=== PATIENT | male | born 1965 | race Caucasian/White ===

== ENCOUNTER → 2016-07-09 | Outpatient (REF) | payer BC ==
[~2016-07-09] MED LIST: ACYC200CA PO; MELO7.5T6 PO; MUCI600T34 PO; TRIA50CA PO
[2016-07-09 12:03] LABS: BASO # 0.1 K/mm3 (0.0-0.2); BASO % 1.4 % (0.0-1.0); EOS # 0.3 K/mm3 (0.0-0.50); EOS % 4.8 % (0.0-3.0); LARGE UNSTAINED CELL # 0.2 K/mm3 (0.0-0.4); LARGE UNSTAINED CELL % 4.2 % (0.0-4.0); LYMPH # 1.6 K/mm3 (1.5-4.5); LYMPH % 24.2 % (24.0-44.0); MEAN CORPUSCULAR HEMOGLOBIN 30.3 pg (27.0-33.0); MEAN CORPUSCULAR HGB CONC 33.8 g/dl (32.0-36.5); MEAN CORPUSCULAR VOLUME 89.6 fl (80.0-96.0); MONO # 0.4 K/mm3 (0.0-0.8); MONO % 6.7 % (0.0-5.0); NEUTROPHILS # 3.3 K/mm3 (1.8-7.7); NEUTROPHILS % 58.7 % (36.0-66.0); PLATELET COUNT, AUTOMATED 169 k/mm3 (150-450); WHITE BLOOD COUNT 5.7 K/mm3 (4.0-10.0)
[2016-07-09 12:27] LABS: ALBUMIN 3.9 GM/DL (3.2-5.2); ALBUMIN/GLOBULIN RATIO 1.22 (1.00-1.93); ALKALINE PHOSPHATASE 105 U/L (45-117); ALT/SGPT 49 U/L (12-78); ANION GAP 8 MEQ/L (8-16); AST/SGOT 22 U/L (15-37); BILIRUBIN,TOTAL 0.4 MG/DL (0.2-1.0); BLOOD UREA NITROGEN 20 MG/DL (7-18); CALCIUM LEVEL 9.5 MG/DL (8.5-10.1); CARBON DIOXIDE LEVEL 30 MEQ/L (21-32); CHLORIDE LEVEL 103 MEQ/L (98-107); CREATININE FOR GFR 1.07 MG/DL (0.70-1.30); GLOMERULAR FILTRATION RATE > 60.0 (>56); GLUCOSE, FASTING 85 MG/DL (70-105); SODIUM LEVEL 141 MEQ/L (136-145); TOTAL PROTEIN 7.1 GM/DL (6.4-8.2)
== END ==
LOC: M LABDRAW1 11:33
PROVIDERS: ATTEND Orthopaedic Surgery
DX: M16.11 Unilateral primary osteoarthritis, right hip (principal)

== ENCOUNTER → 2016-12-16 | Outpatient (CLI) | payer BC ==
[~2016-12-16] MED LIST changes: +CEPH500C PO; +COUM2.5T17 PO; +DOXA1TAB42 PO; +ELIQ5TAB PO; +FINA5TAB2 PO; +MAXZTA PO; -MELO7.5T6 PO; +MELO7.5T7 PO; +MUCI600T31 PO; -MUCI600T34 PO; +MUCI600T37 PO; +PROS5TAB PO; +TRAM50TA2 PO
[2016-12-16 10:39] LABS: MEAN CORPUSCULAR HEMOGLOBIN 31.7 pg (27.0-33.0); MEAN CORPUSCULAR HGB CONC 34.5 g/dl (32.0-36.5); MEAN CORPUSCULAR VOLUME 91.9 fl (80.0-96.0); RED CELL DISTRIBUTION WIDTH 12.8 % (11.5-14.5)
[2016-12-16 10:49] LABS: INR 0.92
[2016-12-16 11:19] LABS: ALBUMIN 3.9 GM/DL (3.2-5.2); ALBUMIN/GLOBULIN RATIO 1.26 (1.00-1.93); ALKALINE PHOSPHATASE 96 U/L (45-117); ALT/SGPT 38 U/L (12-78); ANION GAP 8 MEQ/L (8-16); AST/SGOT 18 U/L (15-37); BILIRUBIN,TOTAL 0.6 MG/DL (0.2-1.0); BLOOD UREA NITROGEN 17 MG/DL (7-18); CALCIUM LEVEL 9.2 MG/DL (8.5-10.1); CARBON DIOXIDE LEVEL 31 MEQ/L (21-32); CHLORIDE LEVEL 102 MEQ/L (98-107); CREATININE FOR GFR 1.08 MG/DL (0.70-1.30); GLOMERULAR FILTRATION RATE > 60.0 (>56); GLUCOSE, FASTING 101 MG/DL (70-105); POTASSIUM SERUM 4.1 MEQ/L (3.5-5.1); SODIUM LEVEL 141 MEQ/L (136-145)
--- NOTE | 2016-12-16 11:59 | REP ---
Clinical: Preoperative assessment . Comparison: 05/05/2016 . Technique: PA and lateral. Findings: The mediastinum and cardiac silhouette are normal. Airway is patent and midline. The lung verma are clear and without acute consolidation, effusion, or pneumothorax. The skeletal structures are intact and normal. Impression: 1. No acute cardiopulmonary process. Signed by Simón Manuel MD 12/16/2016 11:50 A
--- NOTE | 2016-12-16 12:02 | ECGEPIP ---
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
== END ==
LOC: M ADMPAT 09:12
PROVIDERS: ATTEND Orthopaedic Surgery
DX: Z01.818 Encounter for other preprocedural examination (principal); M16.11 Unilateral primary osteoarthritis, right hip

== ENCOUNTER → 2016-12-16 | Outpatient (CLI) | payer BC | LOC: M LAB 09:58 | PROVIDERS: ATTEND Family Medicine | DX: Z01.818 Encounter for other preprocedural examination (principal); I10 Essential (primary) hypertension ==

== ENCOUNTER 2016-12-28 05:34 | Inpatient (IN) | payer BC ==
[2016-12-16 09:49] VITALS: BP 132/80
--- NOTE | 2016-12-24 13:51 | HPE ---
DATE OF ADMISSION: 12/28/2016 CHIEF COMPLAINT: Right hip pain and stiffness. ATTENDING PHYSICIAN: Ainsley Thomson MD HISTORY OF PRESENT ILLNESS: This is a pleasant 51-year-old male patient with progressively worsening right hip pain and stiffness. He has failed to improve with conservative management to include anti-inflammatories, rest, and activity modifications. It affects his activities of daily living and his work-related activities. He has pain, particularly with weightbearing activities and climbing ladders and stairs. He has had x-rays notable for severe osteoarthritis of the right hip. He has elected for surgery for his continued symptoms. He has consented for a right total hip arthroplasty by Dr. Thomson. Medical optimization, Dr. Mccray. ALLERGIES: PEANUT-CONTAINING DRUG PRODUCTS, GELATIN, PREDNISONE. CURRENT MEDICATIONS: Include: - triamterene/hydrochlorothiazide 75/50 one-quarter tablet once per day - He also takes acyclovir 400 mg one tablet once per day. 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 PAST SURGICAL HISTORY: Hernia repair. Otherwise, unremarkable. SOCIAL HISTORY: He does not smoke. He uses alcohol occasionally. 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 FAMILY HISTORY: Noncontributory. REVIEW OF SYSTEMS: Denies fever or chills. Denies chest pain, shortness of breath, or cough. Denies difficulty breathing. Denies abdominal pain. Denies upper respiratory infection (URI) or urinary tract infection (UTI) symptoms. Notes persistent pain in his right hip with weightbearing activities and activities of daily living and denies nausea or vomiting. PHYSICAL EXAMINATION: Today, reveals alert, well-nourished, well-developed male patient, who walks with a limping gait, favors his right side. Examination of the right hip reveals skin to be intact. No erythema, edema, or ecchymosis. There is irritability on hip range of motion. There is decreased internal-external rotation of the hip. Straight leg raise testing is negative to well-perfused right lower extremity. Dorsalis pedis and posterior tibial pulses are palpable. Neck is supple without adenopathy or jugular venous distention (JVD). Lungs are clear to auscultation without rales or wheeze. Heart: Regular rate and rhythm. Abdomen: Bowel sounds are present. Current vital signs: Height 69 inches, weight 216 pounds, temperature 97.5, blood pressure 152/96, pulse 80, respirations 16. IMPRESSION: Symptomatic osteoarthritis of his right hip. LABORATORY DATA: Glucose 101, BUN 17, creatinine 1.08, sodium 141, potassium 4.1, WBC count is 6, RBC count 5.2, hemoglobin 16.5, hematocrit 47.8. PT 12.4, INR 0.92. Urine culture, no growth. Nasal culture, normal khoa. Urinalysis, 1+ blood, otherwise unremarkable. Sedimentation rate 2. Electrocardiogram (EKG), sinus rhythm. Chest x-ray, no acute cardiopulmonary process noted. PLAN: Consented for a right total hip arthroplasty by Dr. Thomson. FABIANA
[2016-12-28] VITALS (9 sets, daily range): BP systolic 96–171; BP diastolic 59–98
[~2016-12-28] VITALS: Ht 180.3 cm; Wt 97.5 kg
[~2016-12-28 05:34] MED LIST changes: -CEPH500C PO; -COUM2.5T17 PO; -ELIQ5TAB PO; -MAXZTA PO; -MUCI600T31 PO; -PROS5TAB PO; -TRAM50TA2 PO
[2016-12-28] MEDS ORDERED: LR 1,000 ML IV ONE (06:00)
[2016-12-28] MEDS ORDERED: LR 1,000 ML IV SCH ×2 (06:00→10:00)
[2016-12-28] MEDS ORDERED: ACETAMINOPHEN 500 MG TAB PO ONE (06:00)
[2016-12-28] MEDS ORDERED: CLINDAMYCIN INJ 900MG/6ML VIAL As Ordered ONE (06:23)
[2016-12-28] MEDS ORDERED: MUCI600T31 PO (06:55)
[2016-12-28] MEDS ORDERED: ceFAZolin 1GM INJ (J0690) As Ordered ONE (07:29)
[2016-12-28] MEDS ORDERED: fentaNYL 100 MCG/2 ML INJECTION (J3010) As Ordered ONE (08:06)
[2016-12-28] MEDS ORDERED: MIDAZOLAM INJ 2 MG/2 ML VIAL (J2250) As Ordered ONE ×2 (08:06→08:17)
[2016-12-28] MEDS ORDERED: LIDOCAINE 2% INJ 100 MG/5 ML SDV (FOR ANES.) As Ordered ONE (08:06)
[2016-12-28] MEDS ORDERED: PROPOFOL 200 MG/20 ML VIAL As Ordered ONE ×2 (08:06→08:07)
[2016-12-28] MEDS ORDERED: ePHEDrine SULFATE 25 MG/5 ML(5MG/ML) SYRINGE As Ordered ONE ×2 (08:07→08:31)
[2016-12-28] MEDS ORDERED: DOXAZOSIN MESYLATE 1 MG TAB PO SCH (09:00)
[2016-12-28] MEDS ORDERED: MORPHINE 1MG/ML IN 0.9% NACL 100ML IV BAG As Ordered ONE (09:21)
[2016-12-28] MEDS ORDERED: diphenhydrAMINE INJ 50MG/ML VIAL (J1200) IV PRN (10:00)
[2016-12-28] MEDS ORDERED: MORPHINE 1MG/ML IN 0.9% NACL 100ML IV BAG IV PRN (10:00)
[2016-12-28] MEDS ORDERED: fentaNYL 100 MCG/2 ML INJECTION (J3010) IV PRN (10:00)
[2016-12-28] MEDS ORDERED: ONDANSETRON 4MG/2ML VIAL (J2405) IV PRN ×2 (10:00)
[2016-12-28] MEDS ORDERED: NALOXONE INJ 0.4 MG/1 ML VIAL (J2310) IV PRN (10:00)
[2016-12-28] MEDS ORDERED: FLEET ENEMA PR PRN (10:00)
[2016-12-28] MEDS ORDERED: ACETAMINOPHEN TAB 650MG DOSE (2X325MG) PO PRN (10:00)
[2016-12-28] MEDS ORDERED: EPIDURAL/PCA KEYS XX PRN (10:00)
[2016-12-28] MEDS ORDERED: NALBUPHINE HCL 10 MG/ML AMP (J2300) IV PRN (10:00)
[2016-12-28] MEDS: LR 1,000 ML IV SCH ×2 (11:23→22:30)
--- NOTE | 2016-12-28 12:22 | IPNPDOC ---
Subjective Date Seen The patient was seen on 12/28/16. Subjective Chief Complaint/HPI The patient is a 51-year-old male admitted with a reason for visit of Arthritis Right Hip. Events since last encounter consulted by Dr Wright for comanagement of medical commrbidities Pateint had right total hip arthroplasty for advanced osteoarthritis. Surgery was uneventful pateint does no have any complaints at this time. No pain , no nausea or vomiting or diarrhea, no chest pain or SOB , no cough or phlegm Objective Physical Examination General Exam: Positive: Alert, Cooperative, No Acute Distress Eye Exam: Positive: PERRLA, Conjunctiva & lids normal, EOMI, Negative: Sclera icteric ENT Exam: Positive: Atraumatic, Mucous membr. moist/pink, Pharynx Normal Neck Exam: Positive: Supple, Negative: JVD, thyromegaly Chest Exam: Positive: Clear to auscultation, Normal air movement Heart Exam: Positive: Rate Normal, Regular Rhythm, Normal S1, Normal S2, Negative: Murmurs, Rubs Abdomen Exam: Positive: Normal bowel sounds, Soft, Negative: Tenderness, Hepatospenomegaly Extremity Exam: Positive: Normal pulses, Negative: Clubbing, Cyanosis, Edema Assessment /Plan Problems (1) S/P total hip arthroplasty Status: Acute Problem Text: for advanced osteoarthritis. pain control and dvt prophylaxis as per ortho protocol. (2) Hypertension Status: Chronic Problem Text: patient takes half of triamterene/ hctz 37.5/25 will start from tomorrow with hold parameters. (3) HSV (herpes simplex virus) infection Status: Chronic Problem Text: continue acyclovir. Plan/VTE VTE Prophylaxis Ordered?: Yes VS, I&O, 24H, Fishbone Vital Signs/I&O Vital Signs Date Time Temp Pulse Resp B/P (MAP) Pulse Ox O2 Delivery O2 Flow Rate FiO2 12/28/16 10:16 78 16 123/75 (91) 97 Room Air 12/28/16 10:05 96.6 RYLEE MCNAMARA MD Dec 28, 2016 12:22
[2016-12-28] MEDS ORDERED: MAXZTA PO (13:26)
[2016-12-28] MEDS ORDERED: DOXA1TAB42 PO (13:27)
[2016-12-28] MEDS ORDERED: MELO7.5T7 PO (13:28)
[2016-12-28] MEDS ORDERED: PROS5TAB PO (13:28)
--- NOTE | 2016-12-28 13:57 | RO ---
DATE OF PROCEDURE: 12/28/2016 PREPROCEDURE DIAGNOSIS: Right hip degenerative arthritis. POSTPROCEDURE DIAGNOSIS: Right hip degenerative arthritis. PROCEDURE: Right total hip arthroplasty using a size 6 [place] high offset stem with a +8.5 neck with a 36 mm ceramic head with a 56 mm Gription cup with a 36 mm neutral polyethylene liner. Prosthesis made by [employer]. SURGEON: Dr. Ainsley Thomson. EMERGENCY RESPONSE COORDINATOR: Mr. Inocente Ramirez. ANESTHESIA: Spinal. ESTIMATED BLOOD LOSS: 200 mL. COMPLICATIONS: None. SPECIMENS: Femoral head. PROCEDURE: Antibiotics were given intravenously preoperatively and successful spinal anesthetic was induced. Mcdermott catheter was placed and then he was placed in a lateral position with Epifanio hip positioner utilized down the leg well padded especially the peroneal nerve and an axillary roll was utilized. His right hip area was then carefully prepped and draped in the usual sterile fashion then after appropriate time out, a longitudinal incision was made for a direct lateral approach to the hip. Bovie cautery was used to coagulate the crossing vessels down to the tensor fascia. Tensor fascia was then divided in alignment of skin incision. Then split the gluteus medius anterior one-third posterior two-third junction exposing the underlying gluteus minimus and divided that as well as underlying hip capsule. We carefully dissected the tissues from the proximal femur satisfactorily and rotated the hip and eventually dislocated it anteriorly. Sterile reamer was placed in the pyriformis fossa followed by the canal finding reamer, then the lateralizing reamer. Then we reamed up to a size 6 reamer. Femoral neck osteotomy was then performed using the template. Then we began broaching up to a size 6. There was good fit and fill with the 6. Calcar planar was used. I then exposed the acetabulum and performed a labral excision 360 degrees and then began reaming beginning with the 48 mm reamer medializing down the tear drop and then expanding the cup size to 55. A trial 56 fit nice and snug. There were some cysts in the acetabulum which were curetted with a curve curette. Then we irrigated once again. The #56 sized Gription cup was then placed with the holes superior and posterior laterally and it fit nicely. We then irrigated and placed the real liner and made sure it was seated properly. We then trialed with a #6 broach once again, we first trialed with a standard neck 1.5 length with a 36 mm ball. The cup seemed to be good position with excellent stability with flexion and internal rotation with adduction as well as extension and external rotation but there is clearly a significant amount of telescoping indicating we needed I felt both length as well as offset because we medialized the cup quite a bit. Thus I trialed with the high offset 8.5 neck and head combination and he had good fit with good stability in flexion and internal rotation with adduction as well as extension and external rotation. I then removed the broach, copiously pulsatile lavage irrigated out the femoral canal as I did several times throughout the surgery, placed the real #6 high offset [place] stem, dried the Trunnion and placed the 36 x 8.5 ceramic head and then reduced the hip. We copiously irrigated once again then closed the anterior capsule and the gluteus minimus back anatomically with interrupted #1 PDS sutures. We then closed the gluteus medius back anatomically with interrupted #1 PDS sutures, irrigated between layers, closed the tensor fascia with interrupted #1 PDS sutures and a running #1 Stratafix, irrigated the subdermal tissues. They were closed with interrupted #2-0 PDS sutures and skin was closed with jennifer covered by Adaptic dry sterile bulky dressing. He was then turned supine and abduction pillow braced supine and then transferred to the recovery room in stable condition. There were no intraoperative complications. Mr. Inocente Ramirez was critical to the success of the procedure by helping to manipulate the leg into the bag and dislocate and relocate the hip several times as well as apply soft tissue reaction, help to repair the patient for surgery as well as help to close the wound.
[2016-12-28] MEDS: MAXZIDE 75/50 TABLET PO SCH (15:56)
[2016-12-28] MEDS ORDERED: PERCOCET 5MG/325MG TAB PO PRN (16:30)
[2016-12-28] MEDS: PERCOCET 5MG/325MG TAB PO PRN ×2 (16:59→21:54)
[2016-12-28] MEDS ORDERED: WARFARIN SOD 5 MG TAB PO ONE (17:00)
[2016-12-28] MEDS: ACYCLOVIR 200 MG CAPSULE PO SCH (17:00)
[2016-12-29 02:00] VITALS: BP 135/55
[2016-12-29] MEDS: PERCOCET 5MG/325MG TAB PO PRN ×4 (02:05→19:59)
[2016-12-29 06:00] VITALS: BP 140/61
[2016-12-29 06:24] LABS: MEAN CORPUSCULAR HEMOGLOBIN 31.9 pg (27.0-33.0); MEAN CORPUSCULAR HGB CONC 34.7 g/dl (32.0-36.5); MEAN CORPUSCULAR VOLUME 92.1 fl (80.0-96.0); RED CELL DISTRIBUTION WIDTH 13.1 % (11.5-14.5)
[2016-12-29 06:39] LABS: ANION GAP 4 MEQ/L (8-16); BLOOD UREA NITROGEN 15 MG/DL (7-18); CALCIUM LEVEL 8.2 MG/DL (8.5-10.1); CARBON DIOXIDE LEVEL 32 MEQ/L (21-32); CHLORIDE LEVEL 102 MEQ/L (98-107); CREATININE FOR GFR 1.03 MG/DL (0.70-1.30); GLOMERULAR FILTRATION RATE > 60.0 (>56); GLUCOSE, FASTING 121 MG/DL (70-105); POTASSIUM SERUM 4.2 MEQ/L (3.5-5.1); SODIUM LEVEL 138 MEQ/L (136-145)
[2016-12-29 06:42] LABS: INR 1.31
--- NOTE | 2016-12-29 09:36 | REP ---
AP LATERAL RIGHT HIP, TWO VIEWS: HISTORY: Hip replacement. The patient is status post right total hip replacement. Degenerative change is present in the acetabulum. There is no acute fracture or dislocation. Surgical clips and a small amount of air are present in the overlying soft tissue. IMPRESSION: The patient is status post right total hip replacement. There is anatomic alignment. Signed by Del Rao MD 12/29/2016 09:49 A
[2016-12-29] MEDS: ACYCLOVIR 200 MG CAPSULE PO SCH (09:51)
[2016-12-29] MEDS: MOM 30ML SUSPENSION UDC PO SCH (09:52)
[2016-12-29] MEDS: MIRALAX *UNIT DOSE* 17GM PACKET PO SCH (09:52)
[2016-12-29] MEDS: MAXZIDE 75/50 TABLET PO SCH (09:53)
[2016-12-29] MEDS: SENOKOT S TAB PO SCH ×2 (09:53→19:58)
[2016-12-29 14:00] VITALS: BP 126/83
--- NOTE | 2016-12-29 14:00 | IPNPDOC ---
Date Seen The patient was seen on 12/29/16. Progress Note Hospitalist Progress Note Subjective: Patient reports some intermittent nausea but overall says he is doing well Objective: Physical Exam: Vitals: Vital Sign - Last 24 Hours 12/28/16 12/28/16 12/28/16 12/28/16 14:15 15:15 16:59 19:15 Temp 96.1 96.9 99.0 Pulse 66 65 77 Resp 10 16 16 14 B/P (MAP) 118/67 (84) 127/63 (84) 125/75 (92) Pulse Ox 95 99 98 O2 Delivery Room Air Room Air Room Air 12/28/16 12/28/16 12/28/16 12/28/16 20:00 21:54 22:00 22:24 Temp 100.1 Pulse 87 Resp 18 14 B/P (MAP) 145/59 (87) Pulse Ox 96 98 O2 Delivery Room Air Room Air Room Air FiO2 96 12/29/16 12/29/16 12/29/16 12/29/16 02:00 02:05 02:35 06:00 Temp 98.3 97.6 Pulse 79 85 Resp 14 95 18 B/P (MAP) 135/55 (81) 140/61 (87) Pulse Ox 99 95 98 O2 Delivery Room Air Room Air Room Air Room Air 12/29/16 12/29/16 12/29/16 09:00 09:52 10:22 Resp 16 18 O2 Delivery Room Air General: Awake, alert, no acute distress HEENT: Normocephalic, atraumatic, extraocular movements intact, moist mucous membranes CV: Regular rate and rhythm, no murmurs rubs or gallops Lungs: Clear to auscultation bilaterally Abd: Soft, nontender, nondistended Extremities: Pedal pulses intact bilaterally Neuro: Alert and oriented 3, normal speech Psych: And normal mood and affect Labs and Imaging: Laboratory Tests 12/29/16 06:01 Red Blood Count 4.25 L, Mean Corpuscular Volume 92.1, Mean Corpuscular Hemoglobin 31.9, Mean Corpuscular Hemoglobin Concent 34.7, Red Cell Distribution Width 13.1, Calcium Level 8.2 L Assessment and Plan: 51-year-old male with osteoarthritis of the right hip, hypertension, frequent herpes simplex virus outbreaks of the lip who was admitted by Dr. Nagel for total right hip arthroplasty. We have been consulted for management of chronic medical issues. 1. Right hip osteoarthritis: Management as per orthopedics. Status post total right hip arthroplasty. 2. Hypertension: We will resume the patient's home triamterene/HCTZ this morning. Blood pressure is controlled. 3. Frequent herpes simplex virus outbreaks of the lip: Continue suppressive acyclovir 400 mg by mouth daily. DVT prophylaxis: As per his primary, surgical team VS, I&O, 24H, [facility] Vital Signs/I&O Vital Signs Date Time Temp Pulse Resp B/P (MAP) Pulse Ox O2 Delivery O2 Flow Rate FiO2 12/29/16 10:22 18 12/29/16 09:00 Room Air 12/29/16 06:00 97.6 85 140/61 (87) 98 12/28/16 22:24 96 12/28/16 13:15 1.0 I&O- Last 24 Hours up to 6 AM 12/29/16 06:00 Intake Total 2800 ml Output Total 1500 ml Balance 1300 ml Laboratory Data 24H LABS Laboratory Tests 2 12/29/16 06:01: Prothrombin Time 16.6H, Prothromb Time International Ratio 1.31, Anion Gap 4L, Glomerular Filtration Rate > 60.0, Blood Urea Nitrogen 15, Creatinine 1.03, Sodium Level 138, Potassium Level 4.2, Chloride Level 102, Carbon Dioxide Level 32, Calcium Level 8.2L CBC/BMP Laboratory Tests 12/29/16 06:01 Red Blood Count 4.25 L, Mean Corpuscular Volume 92.1, Mean Corpuscular Hemoglobin 31.9, Mean Corpuscular Hemoglobin Concent 34.7, Red Cell Distribution Width 13.1, Calcium Level 8.2 L WHITNEY GILL Dec 29, 2016 13:59
[2016-12-29] MEDS ORDERED: WARFARIN SOD 5 MG TAB PO ONE (17:00)
[2016-12-29] MEDS: ACYCLOVIR 400 MG PO SCH (17:24)
[2016-12-29 22:00] VITALS: BP 182/98
[2016-12-30] MEDS: PERCOCET 5MG/325MG TAB PO PRN ×3 (00:39→13:29)
[2016-12-30 06:18] LABS: INR 1.45; MEAN CORPUSCULAR HEMOGLOBIN 31.8 pg (27.0-33.0); MEAN CORPUSCULAR HGB CONC 34.6 g/dl (32.0-36.5); MEAN CORPUSCULAR VOLUME 91.8 fl (80.0-96.0); RED CELL DISTRIBUTION WIDTH 12.7 % (11.5-14.5); WHITE BLOOD COUNT 8.2 K/mm3 (4.0-10.0)
[2016-12-30 06:40] LABS: ANION GAP 5 MEQ/L (8-16); BLOOD UREA NITROGEN 13 MG/DL (7-18); CALCIUM LEVEL 9.2 MG/DL (8.5-10.1); CARBON DIOXIDE LEVEL 33 MEQ/L (21-32); CHLORIDE LEVEL 100 MEQ/L (98-107); CREATININE FOR GFR 0.95 MG/DL (0.70-1.30); GLOMERULAR FILTRATION RATE > 60.0 (>56); GLUCOSE, FASTING 110 MG/DL (70-105); POTASSIUM SERUM 4.4 MEQ/L (3.5-5.1); SODIUM LEVEL 138 MEQ/L (136-145)
[2016-12-30] MEDS: MOM 30ML SUSPENSION UDC PO SCH (08:21)
[2016-12-30] MEDS: MIRALAX *UNIT DOSE* 17GM PACKET PO SCH (08:21)
[2016-12-30] MEDS: SENOKOT S TAB PO SCH ×2 (08:23→20:37)
[2016-12-30] MEDS: HCTZ PO SCH (08:24)
[2016-12-30] MEDS: TRIAMTERENE PO SCH (08:24)
[2016-12-30] MEDS: ACYCLOVIR 400 MG PO SCH (08:24)
[2016-12-30] MEDS: ONDANSETRON 4 MG ORAL DISINTEGRATING TAB (S0181) PO PRN ×2 (10:32→16:39)
--- NOTE | 2016-12-30 13:59 | IPNPDOC ---
Date Seen The patient was seen on 12/30/16. Progress Note Hospitalist Progress Note Subjective: Patient reports nausea has resolved Objective: Physical Exam: Vitals: Vital Sign - Last 24 Hours 12/29/16 12/29/16 12/29/16 12/29/16 14:00 14:25 19:59 20:00 Temp 98.7 Pulse 87 Resp 16 18 18 B/P (MAP) 126/83 (97) Pulse Ox 99 O2 Delivery Room Air Room Air Room Air 12/29/16 12/30/16 12/30/16 12/30/16 22:00 00:39 01:09 08:15 Temp 98.3 Pulse 83 Resp 16 18 B/P (MAP) 182/98 (126) Pulse Ox 98 98 96 O2 Delivery Room Air Room Air Room Air Room Air 12/30/16 12/30/16 12/30/16 08:23 09:51 13:29 Resp 16 16 16 General: Awake, alert, no acute distress HEENT: Normocephalic, atraumatic, extraocular movements intact, moist mucous membranes CV: Regular rate and rhythm Lungs: Clear to auscultation bilaterally, no wheeze Abd: Soft, nontender, nondistended Extremities: Pedal pulses intact bilaterally Neuro: Alert and oriented 3, normal speech Psych: normal mood and affect Labs and Imaging: Laboratory Tests 12/30/16 05:44 Red Blood Count 4.16 L, Mean Corpuscular Volume 91.8, Mean Corpuscular Hemoglobin 31.8, Mean Corpuscular Hemoglobin Concent 34.6, Red Cell Distribution Width 12.7, Calcium Level 9.2 Assessment and Plan: 51-year-old male with osteoarthritis of the right hip, hypertension, frequent herpes simplex virus outbreaks of the lip who was admitted by Dr. Nagel for total right hip arthroplasty. We have been consulted for management of chronic medical issues. 1. Right hip osteoarthritis: Management as per orthopedics. Status post total right hip arthroplasty. 2. Hypertension: Continue the patient's home triamterene/HCTZ. 3. Frequent herpes simplex virus outbreaks of the lip: Continue suppressive acyclovir 400 mg by mouth daily. DVT prophylaxis: As per his primary, surgical team VS, I&O, 24H, Fishbone Vital Signs/I&O Vital Signs Date Time Temp Pulse Resp B/P (MAP) Pulse Ox O2 Delivery O2 Flow Rate FiO2 12/30/16 13:29 16 12/30/16 08:15 Room Air 12/30/16 01:09 96 12/29/16 22:00 98.3 83 182/98 (126) 12/28/16 22:24 96 12/28/16 13:15 1.0 I&O- Last 24 Hours up to 6 AM 12/30/16 06:00 Intake Total 1980 ml Output Total 1000 ml Balance 980 ml Laboratory Data 24H LABS Laboratory Tests 2 12/30/16 05:44: Prothrombin Time 18.0H, Prothromb Time International Ratio 1.45, Anion Gap 5L, Glomerular Filtration Rate > 60.0, Blood Urea Nitrogen 13, Creatinine 0.95, Sodium Level 138, Potassium Level 4.4, Chloride Level 100, Carbon Dioxide Level 33H, Calcium Level 9.2 CBC/BMP Laboratory Tests 12/30/16 05:44 Red Blood Count 4.16 L, Mean Corpuscular Volume 91.8, Mean Corpuscular Hemoglobin 31.8, Mean Corpuscular Hemoglobin Concent 34.6, Red Cell Distribution Width 12.7, Calcium Level 9.2 WHTINEY GILL Dec 30, 2016 13:59
[2016-12-30 14:00] VITALS: BP 144/85
[2016-12-30] MEDS ORDERED: WARFARIN SOD 7.5 MG TAB PO ONE (17:00)
[2016-12-30 22:00] VITALS: BP 132/89
[2016-12-31 06:00] VITALS: BP 160/84
[2016-12-31 06:06] LABS: MEAN CORPUSCULAR HGB CONC 35.2 g/dl (32.0-36.5); RED CELL DISTRIBUTION WIDTH 12.9 % (11.5-14.5); WHITE BLOOD COUNT 8.8 K/mm3 (4.0-10.0)
[2016-12-31 06:16] LABS: INR 1.91
[2016-12-31 06:52] LABS: ANION GAP 3 MEQ/L (8-16); BLOOD UREA NITROGEN 12 MG/DL (7-18); CALCIUM LEVEL 8.9 MG/DL (8.5-10.1); CARBON DIOXIDE LEVEL 37 MEQ/L (21-32); CHLORIDE LEVEL 97 MEQ/L (98-107); CREATININE FOR GFR 1.03 MG/DL (0.70-1.30); GLOMERULAR FILTRATION RATE > 60.0 (>56); GLUCOSE, FASTING 114 MG/DL (70-105); POTASSIUM SERUM 4.2 MEQ/L (3.5-5.1); SODIUM LEVEL 137 MEQ/L (136-145)
[2016-12-31] MEDS: MOM 30ML SUSPENSION UDC PO SCH (07:46)
[2016-12-31] MEDS: MIRALAX *UNIT DOSE* 17GM PACKET PO SCH (07:47)
[2016-12-31] MEDS: SENOKOT S TAB PO SCH (07:47)
[2016-12-31] MEDS ORDERED: COUM2.5T17 PO (08:07)
[2016-12-31] MEDS ORDERED: TRAM50TA2 PO (08:07)
[2016-12-31] MEDS: ACYCLOVIR 400 MG PO SCH (08:08)
[2016-12-31] MEDS: HCTZ PO SCH (08:09)
[2016-12-31] MEDS: TRIAMTERENE PO SCH (08:09)
--- NOTE | 2016-12-31 10:10 | IPNPDOC ---
Date Seen The patient was seen on 12/31/16. Progress Note Hospitalist Progress Note Subjective: Patient reports loose stools and rumbling stomach but he did receive miralax, milk of mag, and senakot yesterday. He reports that he tolerated breakfast. Objective: Physical Exam: Vitals: Vital Sign - Last 24 Hours 12/30/16 12/30/16 12/30/16 12/30/16 13:29 14:00 14:00 20:34 Temp 99.1 Pulse 93 Resp 16 16 14 18 B/P (MAP) 144/85 (104) Pulse Ox 98 O2 Delivery Room Air 12/30/16 12/30/16 12/31/16 12/31/16 21:04 22:00 06:00 08:00 Temp 96.0 98.2 Pulse 108 84 Resp 18 14 14 B/P (MAP) 132/89 (103) 160/84 (109) Pulse Ox 95 96 O2 Delivery Room Air Room Air Room Air General: Awake, alert, no acute distress HEENT: Normocephalic, atraumatic, extraocular movements intact, moist mucous membranes CV: Regular rate and rhythm Lungs: Clear to auscultation bilaterally Abd: Soft, nontender, nondistended Extremities: Pedal pulses intact bilaterally Neuro: Alert and oriented 3, normal speech Psych: normal mood and affect Labs and Imaging: Laboratory Tests 12/31/16 05:42 Red Blood Count 4.14 L, Mean Corpuscular Volume 91.0, Mean Corpuscular Hemoglobin 32.0, Mean Corpuscular Hemoglobin Concent 35.2, Red Cell Distribution Width 12.9, Calcium Level 8.9 Assessment and Plan: 51-year-old male with osteoarthritis of the right hip, hypertension, frequent herpes simplex virus outbreaks of the lip who was admitted by Dr. Nagel for total right hip arthroplasty. We have been consulted for management of chronic medical issues. 1. Right hip osteoarthritis: Management as per orthopedics. Status post total right hip arthroplasty. 2. Hypertension: Continue the patient's home triamterene/HCTZ. 3. Frequent herpes simplex virus outbreaks of the lip: Continue suppressive acyclovir 400 mg by mouth daily. DVT prophylaxis: As per his primary, surgical team VS, I&O, 24H, Fishbone Vital Signs/I&O Vital Signs Date Time Temp Pulse Resp B/P (MAP) Pulse Ox O2 Delivery O2 Flow Rate FiO2 12/31/16 08:00 Room Air 12/31/16 06:00 98.2 84 14 160/84 (109) 96 12/28/16 22:24 96 12/28/16 13:15 1.0 I&O- Last 24 Hours up to 6 AM 12/31/16 06:00 Intake Total 1500 ml Output Total 1200 ml Balance 300 ml Laboratory Data 24H LABS Laboratory Tests 2 12/31/16 05:42: Prothrombin Time 22.5H, Prothromb Time International Ratio 1.91, Anion Gap 3L, Glomerular Filtration Rate > 60.0, Blood Urea Nitrogen 12, Creatinine 1.03, Sodium Level 137, Potassium Level 4.2, Chloride Level 97L, Carbon Dioxide Level 37H, Calcium Level 8.9 CBC/BMP Laboratory Tests 12/31/16 05:42 Red Blood Count 4.14 L, Mean Corpuscular Volume 91.0, Mean Corpuscular Hemoglobin 32.0, Mean Corpuscular Hemoglobin Concent 35.2, Red Cell Distribution Width 12.9, Calcium Level 8.9 WHITNEY GILL Dec 31, 2016 10:09
--- NOTE | 2017-01-05 21:57 | DSES ---
DATE OF ADMISSION: 12/28/2016 DATE OF DISCHARGE: 12/31/2016 ATTENDING PHYSICIAN: Dr. Osmar Thomson ADMISSION DIAGNOSIS: Osteoarthritis right hip. OTHER DIAGNOSES: Hypertension, chronic herpes simplex virus. DISCHARGE DIAGNOSIS: Osteoarthritis right hip status post right total hip arthroplasty. HISTORY: This is a pleasant 51-year-old male patient with progressively worsening right hip pain and stiffness. He failed to improve with conservative management. He was admitted for elective hip replacement on the right side. OPERATION PERFORMED: Right total hip arthroplasty. HOSPITAL COURSE: The patient was admitted on day of surgery and underwent a right total hip arthroplasty which was uneventful. He did well in the postoperative period. His hospital course was without complications. He was up with physical therapy per their protocol and his pain was controlled. On day of discharge he was doing well, weightbearing as tolerated on his right lower extremity. He will use adjusted dose Coumadin and PABLO stockings for 30 days postoperatively for DVT prophylaxis. He will resume his preoperative medications and diet. He was given instructions to include but not limited to wound monitoring and activity limitations. He will use oral pain medications for pain control. He will followup in our office in 10-14 days for a surgical followup. Please refer to the medical record for further details.
== END 2016-12-31 12:40 | disposition home or self-care (01) | DRG 301 ==
LOC: M OR 05:34 → M MS5PR 10:32
PROVIDERS: ADMIT Orthopaedic Surgery; ATTEND Orthopaedic Surgery
PROC: 0SR904A Replacement of Right Hip Joint with Ceramic on Polyethylene Synthetic Substitute, Uncemented, Open Approach (ICD-10-PCS; principal; 2016-12-28 07:30)
DX: M17.11 Unilateral primary osteoarthritis, right knee (principal); Z91.010 Allergy to peanuts; Z88.8 Allergy status to other drugs, medicaments and biological substances; Z91.018 Allergy to other foods; Z79.899 Other long term (current) drug therapy; I10 Essential (primary) hypertension; B00.9 Herpesviral infection, unspecified

== ENCOUNTER → 2017-01-05 | Outpatient (REF) | payer BC ==
[~2017-01-05] MED LIST changes: +CEPH500C PO; +COUM2.5T17 PO; +ELIQ5TAB PO; +MAXZTA PO; +MUCI600T31 PO; +PROS5TAB PO; +TRAM50TA2 PO
[2017-01-05 13:08] LABS: INR 2.37
== END ==
LOC: M LAB REF 12:29
PROVIDERS: ATTEND Nurse Practitioner Family
DX: Z51.81 Encounter for therapeutic drug level monitoring (principal); Z79.01 Long term (current) use of anticoagulants

== ENCOUNTER → 2017-01-18 | Outpatient (REF) | payer BC ==
[2017-01-18 14:21] LABS: INR 1.77
== END ==
LOC: M LAB REF 13:49
PROVIDERS: ATTEND Nurse Practitioner Family
DX: Z51.81 Encounter for therapeutic drug level monitoring (principal); Z79.01 Long term (current) use of anticoagulants

== ENCOUNTER 2017-03-16 16:28 | Inpatient (IN) | payer BC ==
[~2017-03-16] VITALS: Ht 180.3 cm; Wt 106.2 kg
[2017-03-16] VITALS (10 sets, daily range): BP systolic 79–127; BP diastolic 55–87; PULSE 122–125
[~2017-03-16 16:28] MED LIST changes: -CEPH500C PO; -ELIQ5TAB PO
[2017-03-16] MEDS ORDERED: CEPH500C PO (16:40)
[2017-03-16] MEDS ORDERED: ISOVUE-370 76% 100ML VIAL (Q9967) As Ordered ONE (17:04)
[2017-03-16 17:13] LABS: ABG BASE EXCESS 0.1 (-2.0-2.0); ABG HCO3 22.5 MEQ/L (22.0-26.0); ABG PARTIAL PRESSURE CO2 31.4 mmHg (35.0-45.0); ABG PARTIAL PRESSURE O2 69.9 mmHg (75.0-100.0); ABG STANDARD HCO3 24.5 MEQ/L (22.0-26.0); ABG TOTAL CO2 23.5 MEQ/L (22.0-29.0); ABG pH (ARTERIAL) 7.473 UNITS (7.350-7.450)
[2017-03-16 17:19] LABS: BASO # 0.1 10^3/uL (0.0-0.2); BASO % 0.5 % (0.0-1.0); EOS # 0.1 10^3/uL (0.0-0.50); EOS % 1.3 % (0.0-3.0); IMMATURE GRANULOCYTE % 0.4 % (0-0); LYMPH # 0.8 10^3/uL (1.5-4.5); LYMPH % 7.6 % (24.0-44.0); MEAN CORPUSCULAR HGB CONC 33.5 g/dl (32.0-36.5); MEAN CORPUSCULAR VOLUME 89.6 fl (80.0-96.0); MONO # 0.9 10^3/uL (0.0-0.8); MONO % 8.4 % (0.0-5.0); NEUTROPHILS # 8.5 10^3/uL (1.8-7.7); NEUTROPHILS % 81.8 % (36.0-66.0); PLATELET COUNT, AUTOMATED 172 10^3/uL (150-450); RED CELL DISTRIBUTION WIDTH 12.2 % (11.5-14.5); WHITE BLOOD COUNT 10.4 10^3/uL (4.0-10.0)
[2017-03-16 17:20] LABS: ADD MORPHOLOGY? NO
--- NOTE | 2017-03-16 17:38 | REP ---
Portable chest x-ray: Single view. History: Chest pain. Comparison study: December 16, 2016. Findings: The lungs are symmetrically aerated and free of infiltrate. EKG monitoring electrodes overlie the chest. Heart is not enlarged. Pulmonary vasculature is not increased. Impression: No active disease. Signed by Sergio Lopez MD 03/17/2017 08:17 A
[2017-03-16 17:41] LABS: INR 1.08
[2017-03-16 17:44] LABS: ANION GAP 9 MEQ/L (8-16); BLOOD UREA NITROGEN 12 MG/DL (7-18); CALCIUM LEVEL 9.4 MG/DL (8.5-10.1); CARBON DIOXIDE LEVEL 27 MEQ/L (21-32); CHLORIDE LEVEL 99 MEQ/L (98-107); CREATININE FOR GFR 1.21 MG/DL (0.70-1.30); GLOMERULAR FILTRATION RATE > 60.0 (>56); GLUCOSE, FASTING 139 MG/DL (70-105); POTASSIUM SERUM 3.5 MEQ/L (3.5-5.1); SODIUM LEVEL 135 MEQ/L (136-145)
[2017-03-16] MEDS ORDERED: HEPARIN DRIP 25,000 UNITS in APPROPRIATE DILUENT 1 EA IV SCH ×2 (18:16→18:30)
--- NOTE | 2017-03-16 18:16 | REP ---
CT of the chest with IV contrast, CT pulmonary angiography: There are bilateral pulmonary emboli in the distal right and left common pulmonary arteries extending into the upper and lower lobe branches bilaterally. There is a small pleural-based infiltrate peripherally in the left lung. The lung verma otherwise clear. No pleural effusion. The thoracic aorta is unremarkable. Cardiac size normal. No pericardial effusion. No adenopathy. The visualized upper abdominal contents are unremarkable. Impression: Large bilateral central pulmonary emboli in the distal main right and left pulmonary arteries extending into the lobar arteries bilaterally. Signed by Philipp Le MD 03/16/2017 06:07 P
[2017-03-16] MEDS ORDERED: HEPARIN SOD (PORCINE) 5000 UNITS/ML VIAL IV PRN (18:30)
[2017-03-16] MEDS ORDERED: HEPARIN SOD (PORCINE) 5000 UNITS/ML VIAL IV ONE (18:30)
--- NOTE | 2017-03-16 19:00 | REPUSA ---
Clinical history: Pain, swelling. Findings: The left common femoral, superficial femoral, popliteal, and other deep venous structures c ompress normally and demonstrate normal color Doppler flow. Normal venous waveforms with augmentation are seen. On the right, there is echogenic noncompressible thrombus throughout the right common femoral, superf icial femoral, and popliteal arteries. Impression: 1. Nonocclusive deep vein thrombosis throughout the right femoral popliteal venous system. 2. No evidence of deep vein thrombosis in the left femoral popliteal venous system.
[2017-03-16] MEDS: HEPARIN DRIP 25,000 UNITS in APPROPRIATE DILUENT 1 EA IV SCH (19:06)
--- NOTE | 2017-03-16 19:36 | HPE ---
DATE OF ADMISSION: 03/16/2017 PRIMARY CARE PROVIDER: Aicha Mccray MD CHIEF COMPLAINT: Shortness of breath, left-sided chest pain. HISTORY OF PRESENT ILLNESS: The patient is a 52-year-old man who underwent a right total hip replacement on 12/28/2016. He was admitted here on 12/28/2016. He tolerated the procedure well. He went home with a month of Coumadin and had no postoperative complications. He was preparing to return to work, however, the 7 days he got progressively worsening shortness of breath and dyspnea on exertion. He was seen by his primary care provider who suggested that he may have had some sinusitis or sinus infection going down into pneumonia and he was started on antibiotics. He had no improvement of symptoms and progressively worsening of his symptoms prompting him to present to the emergency room today. While in Triage and filling out paperwork he did get lightheaded and have a near-syncopal episode, but did resolve with sitting down. At the present time he denies shortness of breath, chest pain, lightheadedness and dizziness, nausea or vomiting. He tells me his shortness of breath is better with the oxygen provided in the emergency room. PAST MEDICAL HISTORY: Hypertension. Herpes simplex virus (HSV). ALLERGIES: GELATIN. 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 AZITHROMYCIN. PEANUTS. PAST SURGICAL HISTORY: Right total hip. As outlined above. He also had a hernia repair in the distant past. HOME MEDICATIONS: - acyclovir 400 mg daily - cephalexin 500 mg four times a day - Mucinex 600 mg daily - tramadol 150 to 100 mg every 4 hours as needed pain - triamterine/hydrochlorothiazide 75/50 mg daily - Coumadin 2.5 mg. The patient completed for one month after his surgical procedure. He is no longer taking this medication. SOCIAL HISTORY: He lives alone. He denies any tobacco history. His last drink was greater than 6 months ago. 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 FAMILY HISTORY: His father of a massive coronary myocardial infarction ([place]) in his 30s with thrombi up into the neck at that time. REVIEW OF SYSTEMS: Negative other than HPI. PHYSICAL EXAMINATION: Temperature 98.2, heart rate 122. Respiratory rate 16, blood pressure 122/75, O2 saturation 86% on room air. He is 94% on 2 liters. GENERAL: He is a pleasant middle age, overweight male lying on a stretcher at a 30 degrees angle. He does not appear to be in any acute distress. He is accompanied by his mother and stepfather. HEENT: Cranial nerves II through XII grossly intact. Difficult to assess for any elevation of his central venous pressure secondary to his enlarged neck. CARDIOVASCULAR: S1, S2. He is tachycardic without additional heart sounds appreciated. RESPIRATORY: Fairly good. He has pain in the left anterior chest with deep inspiration. ABDOMEN: Benign, but obese. EXTREMITIES: No clubbing, cyanosis or edema. LABORATORY STUDIES: WBC 10.4, hemoglobin 16.7, platelet count 172. Chemistry panel: Sodium 135, potassium 3.5, chloride 9, bicarbonate 27. BUN 12, creatinine 1.2. ProBNP is slightly elevated at 685. Troponin is equivocal at 0.57. Hypercoagulable workup has been sent and is currently pending. Arterial blood gas reveals a pH of 7.4, pCO2 of 31.4 and a pO2 of 69.9. IMAGING: The patient did have a chest x-ray which revealed no active disease. This was subsequently followed up with a CT angiography of the chest which revealed large bilateral central pulmonary emboli in the distal, main and right and left pulmonary arteries, extending into the lobar arteries bilaterally. ASSESSMENT AND PLAN: This is a 52-year-old man with large bilateral pulmonary embolisms (PEs). 1. Large bilateral pulmonary embolisms. At this time I will check a stat duplex of the lower extremities to assess for further clot burden and the need for potentially an IVC filter. He will be admitted to the medical intensive care unit. I have discussed with Dr. Green and he will be given a bolus of IV heparin followed by continuous heparin infusion to have the patient therapeutic as quickly as possible. For the time being I will keep him on bed rest to avoid any further clot migration. He currently has significant O2 requirement tachycardic and had near-syncopal episode. I would like to see him become less tachycardic, less hypoxic and assess his clot burden of the lower extremity before allowing him to ambulate or get out of bed. Given that his father of a massive coronary with thrombi into the neck, I suspect he has a genetic predisposition intensified by his recent surgery and he was on appropriate anticoagulation following the surgery and once this has been appropriately discontinued, his genetic predisposition has revealed itself. Followup with anticoagulation, hypercoagulable state studies with potential of hematology as an outpatient. However, I suspect the patient may benefit from lifelong anticoagulation given his clot burden and the severity of his presentation. Will check an echocardiogram and monitor his troponin, although it is likely demand ischemia related to his clot burden as well as his BNP. 2. Hypertension. We will hold his home antihypertensives. 3. Herpes Zoster. Usually the patient takes acyclovir 400 mg daily to prevent cold sores in his mouth. Will continue with this. He tells me that his allergy to gelatin is cold sores in the mouth. I feel this is less likely related to gelatin. We will be providing him heparin through the IV. Once he is more stable, could consider transitioning him to potentially Eliquis 4. Right total hip replacement. Continue with tramadol as needed for pain. 5. Deep venous thrombosis (DVT) prophylaxis. As outlined above he will be on heparin drip. 6. GI prophylaxis. The patient will be on Protonix IV while on the medical intensive care unit. DISPOSITION: The patient is admitted to Dr. Lowry's service who will continue following the patient at 7:00 a.m. I did have a lengthy discussion with the patient and his family, his mother and stepfather who are bedside that his disease burden is quite severe and that his prognosis is currently guarded. Should the patient have sudden cardiac arrest we would recommend tissue plasminogen activator (tPA), IV push.
--- NOTE | 2017-03-16 23:28 | IPNPDOC ---
Subjective Date Seen The patient was seen on 03/16/17. Subjective Chief Complaint/HPI The patient is a 52-year-old male admitted with a reason for visit of Bilat Pulmonary Embolism. Assessment /Plan Assessment overnight provider asked to respond to pt at 23:25 for hypotension, CP and diaphoresis. Pt. stat EKG did not demonstrate infarct or ischemia. Pt's oxygen was increased to 4 L and the pt stated chest pain had improved substantially. Upon physical exam, pt was not labored, not diaphoretic and stable with bp 118/ 80 and 97% on 4 L O2. Fifteen minutes later, pt was sleeping comfortably in bed. Plan/VTE VTE Prophylaxis Ordered?: Yes VS, I&O, 24H, Fishbone Vital Signs/I&O Vital Signs Date Time Temp Pulse Resp B/P (MAP) Pulse Ox O2 Delivery O2 Flow Rate FiO2 03/16/17 20:15 122 111/73 (86) 96 03/16/17 17:54 Room Air 03/16/17 16:28 98.2 16 Laboratory Data 24H LABS Laboratory Tests 2 03/16/17 16:58: Blood Gas Bicarbonate Standard 24.5, Arterial Blood pH 7.473H, Arterial Blood Partial Pressure CO2 31.4L, Arterial Blood Partial Pressure O2 69.9L, Arterial Blood Total CO2 23.5, Arterial Blood HCO3 22.5, Arterial Blood Base Excess 0.1, Arterial Blood Oxygen Saturation 95.2 03/16/17 16:59: Immature Granulocyte % (Auto) 0.4H, White Blood Count 10.4H, Red Blood Count 5.56, Hemoglobin 16.7, Hematocrit 49.8, Mean Corpuscular Volume 89.6, Mean Corpuscular Hemoglobin 30.0, Mean Corpuscular Hemoglobin Concent 33.5, Red Cell Distribution Width 12.2, Platelet Count 172, Neutrophils (%) (Auto) 81.8H, Lymphocytes (%) (Auto) 7.6L, Monocytes (%) (Auto) 8.4H, Eosinophils (%) (Auto) 1.3, Basophils (%) (Auto) 0.5, Neutrophils # (Auto) 8.5H, Lymphocytes # (Auto) 0.8L, Monocytes # (Auto) 0.9H, Eosinophils # (Auto) 0.1, Basophils # (Auto) 0.1 , Immature Granulocyte # (Auto) 0.0, Nucleated Red Blood Cells % (auto) 0.0, Prothrombin Time 14.2, Prothromb Time International Ratio 1.08, Activated Partial Thromboplast Time 24.5L, D-Dimer, Quantitative > 4000.0H, Anion Gap 9, Glomerular Filtration Rate > 60.0, Blood Urea Nitrogen 12, Creatinine 1.21, Sodium Level 135L, Potassium Level 3.5, Chloride Level 99, Carbon Dioxide Level 27, Calcium Level 9.4, Total Creatine Kinase 98, Creatine Kinase MB 2.5, Creatine Kinase MB Relative Index 2.55, Troponin I 0.57H, NR-Fgt-B-Type Natriuretic Peptide 685H 03/16/17 17:55: 03/16/17 17:56: 03/16/17 22:57: CBC/BMP Laboratory Tests 03/16/17 16:59 Red Blood Count 5.56, Mean Corpuscular Volume 89.6, Mean Corpuscular Hemoglobin 30.0, Mean Corpuscular Hemoglobin Concent 33.5, Red Cell Distribution Width 12.2 , Neutrophils (%) (Auto) 81.8 H, Lymphocytes (%) (Auto) 7.6 L, Monocytes (%) ( Auto) 8.4 H, Eosinophils (%) (Auto) 1.3, Basophils (%) (Auto) 0.5, Neutrophils # (Auto) 8.5 H, Lymphocytes # (Auto) 0.8 L, Monocytes # (Auto) 0.9 H, Eosinophils # (Auto) 0.1, Basophils # (Auto) 0.1, Calcium Level 9.4, Total Creatine Kinase 98 MEHDI ARAGON DO Mar 16, 2017 23:28
[2017-03-17] VITALS (13 sets, daily range): BP systolic 98–127; BP diastolic 70–85; PULSE 117–118
[2017-03-17] MEDS: traMADol 50 MG TAB PO PRN ×2 (01:02→09:36)
[2017-03-17] MEDS ORDERED: PERCOCET 5MG/325MG TAB PO ONE (02:00)
[2017-03-17 05:12] LABS: MEAN CORPUSCULAR HEMOGLOBIN 29.7 pg (27.0-33.0); MEAN CORPUSCULAR HGB CONC 32.8 g/dl (32.0-36.5); MEAN CORPUSCULAR VOLUME 90.6 fl (80.0-96.0); RED CELL DISTRIBUTION WIDTH 12.4 % (11.5-14.5); WHITE BLOOD COUNT 12.7 10^3/uL (4.0-10.0)
[2017-03-17 05:29] LABS: CALCIUM LEVEL 9.3 MG/DL (8.5-10.1); CREATININE FOR GFR 1.38 MG/DL (0.70-1.30); GLOMERULAR FILTRATION RATE 57.2 (>56); POTASSIUM SERUM 4.3 MEQ/L (3.5-5.1)
--- NOTE | 2017-03-17 06:26 | ECGEPIP ---
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
[2017-03-17] MEDS ORDERED: ACYCLOVIR 200 MG CAPSULE PO SCH (09:00)
[2017-03-17] MEDS: PANTOPRAZOLE 40MG INJ (PROTONIX) (C9113) IV SCH (09:36)
--- NOTE | 2017-03-17 11:16 | IPNPDOC ---
Subjective Date Seen The patient was seen on 03/17/17. Subjective Chief Complaint/HPI The patient is a 52-year-old male admitted with a reason for visit of Bilat Pulmonary Embolism. Events since last encounter Pt notes feeling improved at the time of assessment. States he only has a mild dull ache to his mid chest with deep inspiration, but no longer has pain at rest. He states he is also note feeling as SOB as he was last night. He notes that he had the episode of feeling SOB with significant midsternal CP last night but has felt improved after dose of pain medication and being placed on O2. He denies feeling diaphoretic, nausea, vomiting, abd pain or cough. General: Reports: Night Sweats (resolved), Normal Appetite, Denies: Chills, Fatigue Constitutional: Denies: Chills, Fever, Malaise, Weakness, Fatigue ENT: Denies: Head Aches Skin: Denies: Rash Pulmonary: Reports: Dyspnea, Pleuritic Chest Pain, Denies: Cough Cardiovascular: Reports: Chest Pain, Denies: Palpitations, Orthopnea, Paroxysmal Noc. Dyspnea, Edema Gastrointestinal: Denies: Nausea, Vomiting, Abdominal Pain Genitourinary: Denies: Dysuria Neurological: Denies: Weakness Psych: Reports: Mood Normal Objective Physical Examination General Exam: Positive: Alert, Cooperative, No Acute Distress, Other (NC 4L in place, able to speak in full sentences without SOB) Eye Exam: Positive: Conjunctiva & lids normal, EOMI ENT Exam: Positive: Atraumatic, Mucous membr. moist/pink Neck Exam: Positive: Supple, Negative: JVD Chest Exam: Positive: Clear to auscultation, Normal air movement, Wheezing ( inspiratory, bases), Negative: Rales, Rhonchi Heart Exam: Positive: Tachycardic (104-105), Regular Rhythm, Normal S1, Normal S2 Telemetry: Positive: No significant arrhythmia, Sinus Abdomen Exam: Positive: Normal bowel sounds, Soft, Negative: Tenderness, Hepatospenomegaly Neuro Exam: Positive: Normal Speech Psych Exam: Positive: Mental status NL, Mood NL RAD Interpretation STUDY: US extremities Rad Actions: Report Reviewed (Nonocclusive deep vein thrombosis throughout the right femoral popliteal venous system. no LLE DVT) STUDY: CT angio Rad Actions: Report Reviewed (Large bilateral central pulmonary emboli in the distal main right and left pulmonary arteries extending into the lobar arteries bilaterally.) Assessment /Plan Problems (1) Bilateral pulmonary embolism Status: Acute Problem Text: Patient less tachycardic at the time of assessment with HR in the low 100's. Requiring 4L O2 NC which is new for him, saturating well on 4L, will continue to monitor O2 requirement and and wean off as patient improves. Currently on Heparin drip, will continue. CP also significantly improved with one time dose of Percocet, will monitor recurrence of pain. Troponin initially elevated, likely secondary to right heart strain from large bilateral PE's. Trending down, improved this AM at 0.9 down from 1.28. Pt being monitored on tele with no changes on EKG. Plan for echocardiogram for further evaluation. US LE's showed evidence of non obstructive DVT to right popliteal vein, if he worsens clinically, will consider TPA. Patient will likely need lifetime anticoagulation considering severity of initial presentation and high clot burden, will further evaluate at the time of d/c plan for snf anticoagulation. Hypercoagulable workup ordered to include anticardiolipin antibodies as well as Factor II mutation, which can be followed up as OP. (2) PJ (acute kidney injury) Status: Acute Problem Text: Pt with slight increase in Creatinine to 1.38, likely contrast induced. Will monitor BMP tomorrow. (3) Elevated troponin Status: Acute Response to Treatment: Improving Problem Text: Improving, likely demand ischemia and right heart strain from large b/l PE's. normal EKG. Plan for Echo. (4) Tachycardia Status: Acute Problem Text: improving, secondary to b/l large PE's. Will continue to monitor on tele. (5) Hypertension Status: Chronic Problem Text: Will hold patient's home antihypertensives as his BP has been slightly low. (6) HSV (herpes simplex virus) infection Status: Chronic Response to Treatment: Stable Problem Text: Will continue patient's Acyclovir 400mg. (7) DVT prophylaxis Status: Acute Problem Text: Pt currently on Heparin drip. Plan/VTE VTE Prophylaxis Ordered?: Yes (on heparin drip) VS, I&O, 24H, Fishbone Vital Signs/I&O Vital Signs Date Time Temp Pulse Resp B/P (MAP) Pulse Ox O2 Delivery O2 Flow Rate FiO2 03/17/17 05:00 106 18 112/71 (85) 97 Nasal Cannula 4.0 10/4/17 04:00 97.8 Laboratory Data 24H LABS Laboratory Tests 2 03/16/17 16:58: Blood Gas Bicarbonate Standard 24.5, Arterial Blood pH 7.473H, Arterial Blood Partial Pressure CO2 31.4L, Arterial Blood Partial Pressure O2 69.9L, Arterial Blood Total CO2 23.5, Arterial Blood HCO3 22.5, Arterial Blood Base Excess 0.1, Arterial Blood Oxygen Saturation 95.2 03/16/17 16:59: Immature Granulocyte % (Auto) 0.4H, White Blood Count 10.4H, Red Blood Count 5.56, Hemoglobin 16.7, Hematocrit 49.8, Mean Corpuscular Volume 89.6, Mean Corpuscular Hemoglobin 30.0, Mean Corpuscular Hemoglobin Concent 33.5, Red Cell Distribution Width 12.2, Platelet Count 172, Neutrophils (%) (Auto) 81.8H, Lymphocytes (%) (Auto) 7.6L, Monocytes (%) (Auto) 8.4H, Eosinophils (%) (Auto) 1.3, Basophils (%) (Auto) 0.5, Neutrophils # (Auto) 8.5H, Lymphocytes # (Auto) 0.8L, Monocytes # (Auto) 0.9H, Eosinophils # (Auto) 0.1, Basophils # (Auto) 0.1 , Immature Granulocyte # (Auto) 0.0, Nucleated Red Blood Cells % (auto) 0.0, Prothrombin Time 14.2, Prothromb Time International Ratio 1.08, Activated Partial Thromboplast Time 24.5L, D-Dimer, Quantitative > 4000.0H, Anion Gap 9, Glomerular Filtration Rate > 60.0, Blood Urea Nitrogen 12, Creatinine 1.21, Sodium Level 135L, Potassium Level 3.5, Chloride Level 99, Carbon Dioxide Level 27, Calcium Level 9.4, Total Creatine Kinase 98, Creatine Kinase MB 2.5, Creatine Kinase MB Relative Index 2.55, Troponin I 0.57H, LD-Vuv-P-Type Natriuretic Peptide 685H 03/16/17 17:55: 03/16/17 17:56: 03/16/17 22:57: Troponin I 1.28#H 03/17/17 01:47: Activated Partial Thromboplast Time 86.2H 03/17/17 04:49: Troponin I 0.93#H, Anion Gap 5L, Glomerular Filtration Rate 57.2, Blood Urea Nitrogen 14, Creatinine 1.38H, Sodium Level 136, Potassium Level 4.3#, Chloride Level 100, Carbon Dioxide Level 31, Calcium Level 9.3, PB-Ofa-E-Type Natriuretic Peptide 5182H 03/17/17 08:14: CBC/BMP Laboratory Tests 03/16/17 16:59 Red Blood Count 5.56, Mean Corpuscular Volume 89.6, Mean Corpuscular Hemoglobin 30.0, Mean Corpuscular Hemoglobin Concent 33.5, Red Cell Distribution Width 12.2 , Neutrophils (%) (Auto) 81.8 H, Lymphocytes (%) (Auto) 7.6 L, Monocytes (%) ( Auto) 8.4 H, Eosinophils (%) (Auto) 1.3, Basophils (%) (Auto) 0.5, Neutrophils # (Auto) 8.5 H, Lymphocytes # (Auto) 0.8 L, Monocytes # (Auto) 0.9 H, Eosinophils # (Auto) 0.1, Basophils # (Auto) 0.1, Calcium Level 9.4, Total Creatine Kinase 98 03/17/17 04:49 Red Blood Count 5.55, Mean Corpuscular Volume 90.6, Mean Corpuscular Hemoglobin 29.7, Mean Corpuscular Hemoglobin Concent 32.8, Red Cell Distribution Width 12.4 , Calcium Level 9.3 KENDRICK SPENCER DO Mar 17, 2017 08:56
[2017-03-17] MEDS: HEPARIN DRIP 25,000 UNITS in APPROPRIATE DILUENT 1 EA IV SCH (11:28)
[2017-03-17] MEDS ORDERED: WARFARIN SOD 5 MG TAB PO SCH (17:00)
--- NOTE | 2017-03-17 20:56 | ECGEPIP ---
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
[2017-03-18] VITALS: BP 116/73
[2017-03-18 04:00] VITALS: BP 106/74
[2017-03-18] MEDS: HEPARIN DRIP 25,000 UNITS in APPROPRIATE DILUENT 1 EA IV SCH ×2 (04:37→22:29)
[2017-03-18 05:00] LABS: MEAN CORPUSCULAR HEMOGLOBIN 30.1 pg (27.0-33.0); MEAN CORPUSCULAR HGB CONC 32.8 g/dl (32.0-36.5); MEAN CORPUSCULAR VOLUME 91.7 fl (80.0-96.0); RED CELL DISTRIBUTION WIDTH 12.3 % (11.5-14.5)
[2017-03-18 05:18] LABS: ANION GAP 3 MEQ/L (8-16); BLOOD UREA NITROGEN 16 MG/DL (7-18); CALCIUM LEVEL 8.7 MG/DL (8.5-10.1); CARBON DIOXIDE LEVEL 36 MEQ/L (21-32); CHLORIDE LEVEL 98 MEQ/L (98-107); CREATININE FOR GFR 1.25 MG/DL (0.70-1.30); GLOMERULAR FILTRATION RATE > 60.0 (>56); GLUCOSE, FASTING 101 MG/DL (70-105); POTASSIUM SERUM 4.5 MEQ/L (3.5-5.1); SODIUM LEVEL 137 MEQ/L (136-145)
[2017-03-18] MEDS: traMADol 50 MG TAB PO PRN (07:56)
[2017-03-18 08:00] VITALS: BP 126/79; PULSE 96
[2017-03-18] MEDS: PANTOPRAZOLE 40MG INJ (PROTONIX) (C9113) IV SCH (08:21)
[2017-03-18] MEDS ORDERED: ELIQ5TAB PO ×2 (09:24→12:21)
--- NOTE | 2017-03-18 10:51 | IPNPDOC ---
Subjective Date Seen The patient was seen on 03/18/17. Subjective Chief Complaint/HPI The patient is a 52-year-old male admitted with a reason for visit of Bilat Pulmonary Embolism. Events since last encounter Patient reports feeling well at the time of assessment. States his pain and SOB have improved significantly since admission. Notes that at 2AM last night he had acute onset of left sided CP worse with deep inspiration. Notes that the pain was localized to his left chest, felt like a dull ache and was non radiating. He notes the pain improved with a dose of Toradol. States he currently only has mild discomfort to his left chest with breathing, but significantly improved from last night. He denies palpitations, fever, cough, or any other associated sxs. General: Reports: Normal Appetite, Denies: Chills, Fatigue Constitutional: Denies: Chills, Fever, Malaise, Night Sweats, Fatigue ENT: Denies: Head Aches Skin: Denies: Rash Pulmonary: Reports: Dyspnea, Pleuritic Chest Pain (left sided) Cardiovascular: Reports: Chest Pain, Denies: Palpitations, Orthopnea Gastrointestinal: Denies: Nausea, Vomiting, Abdominal Pain, Diarrhea, Constipation Genitourinary: Denies: Dysuria Psych: Reports: Mood Normal Objective Physical Examination General Exam: Positive: Alert, Cooperative, No Acute Distress, Other (NC 4L in place, able to speak in full sentences without SOB) Eye Exam: Positive: Conjunctiva & lids normal, EOMI ENT Exam: Positive: Atraumatic, Mucous membr. moist/pink Neck Exam: Positive: Supple, Negative: JVD Chest Exam: Positive: Clear to auscultation, Normal air movement, Other (chest wall tenderness diffusely, worse to the left. ), Negative: Rales, Rhonchi, Wheezing Heart Exam: Positive: Rate Normal, Regular Rhythm, Normal S1, Normal S2 Telemetry: Positive: No significant arrhythmia, Sinus Abdomen Exam: Positive: Normal bowel sounds, Soft, Negative: Tenderness, Hepatospenomegaly Neuro Exam: Positive: Normal Speech Psych Exam: Positive: Mental status NL, Mood NL Assessment /Plan Problems (1) Bilateral pulmonary embolism Status: Acute Problem Text: Patient's tachycardia now resolved, HR in the mid 90s at the time of assessment. Still on 4L NC, saturating well on 4L, will continue to monitor O2 requirement and and wean off as patient improves. Currently on Heparin drip, will continue. CP also improving with only one episode of increased pain last night which improved with Toradol. Troponin initially elevated, likely secondary to right heart strain from large bilateral PE's, trending down appropriately. Pt being monitored on tele with no events. Echocardiogram still pending. Plan to monitor patient in the ICU for one more day and consider transfer out to PCU tomorrow if remains stable. Patient may need lifetime anticoagulation considering severity of initial presentation and high clot burden, will further evaluate at the time of d/c plan for intermediate card tender anticoagulation. Hypercoagulable workup ordered, which can be followed up as OP. (2) Deep vein thrombosis (DVT) of popliteal vein of right lower extremity Status: Acute (3) PJ (acute kidney injury) Status: Acute Response to Treatment: Improving Problem Text: Pt with slight increase in Creatinine initially to 1.38, likely contrast induced. Creatinine trending down (4) Elevated troponin Status: Acute Response to Treatment: Improving Problem Text: trending down, likely demand ischemia and right heart strain from large b/l PE's. normal EKG.Echo pending (5) Tachycardia Status: Resolved Problem Text: resolved. initially secondary to b/l large PE's. Will continue to monitor on tele in the ICU for one more day and transfer out tomorrow if he continues to improve clinically. Will allow him to use the commode today. (6) Hypertension Status: Chronic Problem Text: Will hold patient's home antihypertensives as his BP has been slightly low. (7) HSV (herpes simplex virus) infection Status: Chronic Response to Treatment: Stable Problem Text: Will continue patient's Acyclovir 400mg. Plan/VTE VTE Prophylaxis Ordered?: Yes (on heparin drip) VS[facility]/I&O Vital Signs Date Time Temp Pulse Resp B/P (MAP) Pulse Ox O2 Delivery O2 Flow Rate FiO2 03/18/17 07:56 18 03/18/17 04:00 Nasal Cannula 4.0 03/18/17 04:00 98.4 96 106/74 (85) 96 Laboratory Data 24H LABS Laboratory Tests 2 03/17/17 10:58: Troponin I 0.54#H 03/18/17 04:51: Activated Partial Thromboplast Time 85.4H, Anion Gap 3L, Glomerular Filtration Rate > 60.0, Blood Urea Nitrogen 16, Creatinine 1.25, Sodium Level 137, Potassium Level 4.5, Chloride Level 98, Carbon Dioxide Level 36H, Calcium Level 8.7 CBC/BMP Laboratory Tests 03/18/17 04:51 Red Blood Count 5.19, Mean Corpuscular Volume 91.7, Mean Corpuscular Hemoglobin 30.1, Mean Corpuscular Hemoglobin Concent 32.8, Red Cell Distribution Width 12.3 , Calcium Level 8.7 KENDRICK SPENCER DO Mar 18, 2017 09:20
[2017-03-18] MEDS: ACYCLOVIR 400 MG PO SCH (11:26)
[2017-03-18 12:00] VITALS: BP 127/79
[2017-03-18] MEDS: ACETAMINOPHEN TAB 650MG DOSE (2X325MG) PO PRN (14:51)
[2017-03-18 16:00] VITALS: BP 115/66
--- NOTE | 2017-03-18 19:04 | ECHO ---
DATE OF PROCEDURE: 03/18/2017 REFERRING PHYSICIAN: Cuong Tomlinson MD INDICATION: Dyspnea. HEIGHT: 180 cm WEIGHT: 104 kg DIMENSIONS: IVS: 1.3 LV: 4.3 LVPW: 1.3 LA: 4.0 Aorta: 3.2 FINDINGS: The study is of fair technical quality corresponding to patient's body habitus. Left ventricle is of normal size and systolic function, I estimate ejection fraction (EF) around 65-70%. Mild left ventricular hypertrophy is present. Right ventricle was poorly visualized, but appears grossly normal. Same applies to both atria. Aortic valve appears mildly sclerotic, but has normal mobility. Mitral and tricuspid valves were poorly seen, but grossly appear normal. Pulmonic valve was not visualized at all. No pericardial effusion is noted. Inferior vena cava appears at least mildly dilated, but it has collapse with respiration indicative of likely mildly elevated central venous pressure. Aortic root is normal. Aortic arch and abdominal aorta were not seen. Doppler interrogation reveals no aortic stenosis or insufficiency. There is also competent mitral valve. Mild tricuspid insufficiency seen. Calculated pulmonary artery pressure is in 30s corresponding to at least mild pulmonary hypertension. Mitral inflow pattern and tissue Doppler imaging of mitral annulus reveal normal diastolic function (E prime septal and lateral velocities are 9.3 and 9.8 cm/s respectively). CONCLUSION: 1. Study is of fair technical quality. 2. Normal left ventricle (LV) size with mild left ventricular hypertrophy (LVH), normal LV systolic function and likely normal diastolic function. 3. No significant valvular disease. 4. Likely at least mildly elevated central venous pressure and mild pulmonary hypertension. COMMENT: Subacute bacterial endocarditis (SBE) prophylaxis is not recommended.
[2017-03-18 20:00] VITALS: BP 116/82
[2017-03-19] VITALS: BP 110/65
[2017-03-19 04:00] VITALS: BP 119/74; PULSE 105
[2017-03-19 05:20] LABS: MEAN CORPUSCULAR HEMOGLOBIN 29.8 pg (27.0-33.0); MEAN CORPUSCULAR HGB CONC 32.5 g/dl (32.0-36.5); MEAN CORPUSCULAR VOLUME 91.6 fl (80.0-96.0); RED CELL DISTRIBUTION WIDTH 12.1 % (11.5-14.5); WHITE BLOOD COUNT 6.5 10^3/uL (4.0-10.0)
[2017-03-19 05:39] LABS: ANION GAP 4 MEQ/L (8-16); BLOOD UREA NITROGEN 15 MG/DL (7-18); CALCIUM LEVEL 8.6 MG/DL (8.5-10.1); CARBON DIOXIDE LEVEL 35 MEQ/L (21-32); CHLORIDE LEVEL 98 MEQ/L (98-107); GLOMERULAR FILTRATION RATE > 60.0 (>56); GLUCOSE, FASTING 101 MG/DL (70-105); POTASSIUM SERUM 4.3 MEQ/L (3.5-5.1); SODIUM LEVEL 137 MEQ/L (136-145)
[2017-03-19] MEDS: ACETAMINOPHEN TAB 650MG DOSE (2X325MG) PO PRN (05:52)
[2017-03-19 08:00] VITALS: BP 131/82
[2017-03-19] MEDS: ACYCLOVIR 400 MG PO SCH (09:01)
[2017-03-19] MEDS: PANTOPRAZOLE 40MG TAB (PROTONIX) PO SCH (09:02)
--- NOTE | 2017-03-19 11:27 | IPNPDOC ---
Subjective Date Seen The patient was seen on 03/19/17. Subjective Chief Complaint/HPI The patient is a 52-year-old male admitted with a reason for visit of Bilat Pulmonary Embolism. Events since last encounter He is laying in the bed once again today. He states that he only had one small episode of chest pain last night, but was resolved with Tylenol and does not seem to be concerning to him. He does have some pain upon inspiration, although this appears to be better as well. Otherwise, he is grateful to be able to use the commode yesterday, and is hoping that he will be able to move about the room today. He denies any shortness of breath, palpitations, leg swelling, or any other pain. Otherwise, the remainder of his review of systems is negative. Objective Physical Examination General Exam: Positive: Alert, No Acute Distress, Other (NC 4L in place, able to speak in full sentences without SOB) Eye Exam: Positive: Conjunctiva & lids normal, EOMI ENT Exam: Positive: Atraumatic, Mucous membr. moist/pink Neck Exam: Positive: Supple, Negative: JVD Chest Exam: Positive: Clear to auscultation, Normal air movement, Negative: Rales, Wheezing Heart Exam: Positive: Rate Normal, Regular Rhythm, Normal S1, Normal S2 Telemetry: Positive: No significant arrhythmia, Sinus Abdomen Exam: Positive: Normal bowel sounds, Soft, Negative: Tenderness, Hepatospenomegaly Neuro Exam: Positive: Normal Speech, Normal Tone Psych Exam: Positive: Mental status NL, Mood NL, Memory Intact, Oriented x 3, Negative: Anxiety Assessment /Plan Problems (1) Bilateral pulmonary embolism Status: Acute Problem Text: Glenn does continue to be in the mid 90s, however he has not been tachycardic through the night. Oxygen requirements are decreasing, although he still does require 1 liter nasal cannula. He did have some desaturations through the night, and is most likely that he has obstructive sleep apnea, therefore we will order a nocturnal oxygen study for tonight and subsequently determine if he needs a sleep study. LINDA has obtained a prior authorization for Eliquis, he will be switched over to Eliquis 10 milligrams by mouth twice a day starting today which she will need to continue for 7 days, then he can switch over to Eliquis 5 milligrams by mouth twice a day thereafter. Hypercoagulability workup is still pending. (2) Deep vein thrombosis (DVT) of popliteal vein of right lower extremity Status: Acute (3) PJ (acute kidney injury) Status: Resolved Response to Treatment: Improving Problem Text: Resolved (4) Elevated troponin Status: Resolved Problem Text: normal EKG. Echocardiogram was performed and shows mildly elevated central venous pressure and mild pulmonary hypertension, otherwise it is unremarkable. (5) Tachycardia Status: Resolved Problem Text: Tachycardia is now resolved. He has not had any additional episodes of chest pain. We will transfer him to [facility] floor today. (6) Hypertension Status: Chronic Problem Text: Blood pressure is still little soft, we'll continue to hold his antihypertensives at this time. (7) HSV (herpes simplex virus) infection Status: Chronic Response to Treatment: Stable Problem Text: Will continue patient's Acyclovir 400mg. Plan/VTE VTE Prophylaxis Ordered?: Yes (on heparin drip) VS, I&O, 24H, Fishbone Vital Signs/I&O Vital Signs Date Time Temp Pulse Resp B/P (MAP) Pulse Ox O2 Delivery O2 Flow Rate FiO2 03/19/17 08:00 Nasal Cannula 1.0 03/19/17 08:00 98.0 88 18 131/82 (98) 96 I&O- Last 24 Hours up to 6 AM 03/20/17 06:00 Intake Total 308 ml Output Total 125 ml Balance 183 ml Laboratory Data 24H LABS Laboratory Tests 2 03/19/17 04:50: Prothrombin Time 13.3, Prothromb Time International Ratio 1.00, Activated Partial Thromboplast Time 62.8H, Anion Gap 4L, Glomerular Filtration Rate > 60.0 , Blood Urea Nitrogen 15, Creatinine 1.10, Sodium Level 137, Potassium Level 4.3 , Chloride Level 98, Carbon Dioxide Level 35H, Calcium Level 8.6 CBC/BMP Laboratory Tests 03/19/17 04:50 Red Blood Count 5.24, Mean Corpuscular Volume 91.6, Mean Corpuscular Hemoglobin 29.8, Mean Corpuscular Hemoglobin Concent 32.5, Red Cell Distribution Width 12.1 , Calcium Level 8.6 KENDRICK SPENCER DO Mar 19, 2017 11:27
[2017-03-19] MEDS: SENOKOT S TAB PO SCH ×2 (12:03→21:00)
[2017-03-19] MEDS: HEPARIN DRIP 25,000 UNITS in APPROPRIATE DILUENT 1 EA IV SCH (13:41)
[2017-03-19 14:00] VITALS: BP 125/75
[2017-03-19] MEDS: APIXABAN 5 MG TAB (ELIQUIS) PO SCH (21:00)
[2017-03-19 22:00] VITALS: BP 134/86
[2017-03-20 06:00] VITALS: BP 133/76
[2017-03-20 06:22] LABS: MEAN CORPUSCULAR HEMOGLOBIN 30.1 pg (27.0-33.0); MEAN CORPUSCULAR HGB CONC 33.2 g/dl (32.0-36.5); MEAN CORPUSCULAR VOLUME 90.6 fl (80.0-96.0); WHITE BLOOD COUNT 4.7 10^3/uL (4.0-10.0)
[2017-03-20 06:31] LABS: INR 1.09
[2017-03-20 06:48] LABS: ANION GAP 5 MEQ/L (8-16); BLOOD UREA NITROGEN 15 MG/DL (7-18); CALCIUM LEVEL 8.3 MG/DL (8.5-10.1); CARBON DIOXIDE LEVEL 33 MEQ/L (21-32); CHLORIDE LEVEL 100 MEQ/L (98-107); CREATININE FOR GFR 1.02 MG/DL (0.70-1.30); GLOMERULAR FILTRATION RATE > 60.0 (>56); GLUCOSE, FASTING 100 MG/DL (70-105); POTASSIUM SERUM 4.5 MEQ/L (3.5-5.1); SODIUM LEVEL 138 MEQ/L (136-145)
[2017-03-20] MEDS: SENOKOT S TAB PO SCH ×3 (09:00→20:16)
[2017-03-20] MEDS: PANTOPRAZOLE 40MG TAB (PROTONIX) PO SCH (10:26)
[2017-03-20] MEDS: ACYCLOVIR 400 MG PO SCH (10:27)
[2017-03-20] MEDS: APIXABAN 5 MG TAB (ELIQUIS) PO SCH ×2 (10:27→20:14)
--- NOTE | 2017-03-20 12:23 | IPNPDOC ---
Subjective Date Seen The patient was seen on 03/20/17. Subjective Chief Complaint/HPI The patient is a 52-year-old male admitted with a reason for visit of Bilat Pulmonary Embolism. Events since last encounter Mr. Burrows is actually feeling significantly better this morning. He has not had any additional episodes of chest pain. He reports that using the incentive spirometer does not cause him much discomfort. He does desaturate during the night which is most likely due to undiagnosed obstructive sleep apnea. He states that as soon as he rolls onto his side he no longer hears the monitor ( oxygen saturation) beeping at him, and he believes that he only desaturates when he is sleeping on his back, which is something he only started just recently because of his hip surgery. Otherwise, he is feeling well today, and the remainder of his review of systems is negative. Objective Physical Examination General Exam: Positive: Alert, Cooperative, No Acute Distress, Other (NC 4L in place, able to speak in full sentences without SOB) Eye Exam: Positive: Conjunctiva & lids normal, EOMI ENT Exam: Positive: Atraumatic, Mucous membr. moist/pink Neck Exam: Positive: Supple, Negative: JVD Chest Exam: Positive: Clear to auscultation, Normal air movement, Negative: Rales, Rhonchi, Wheezing Heart Exam: Positive: Rate Normal, Regular Rhythm Abdomen Exam: Positive: Normal bowel sounds, Soft, Negative: Tenderness, Hepatospenomegaly Neuro Exam: Positive: Normal Speech, Normal Tone Psych Exam: Positive: Mental status NL, Mood NL Assessment /Plan Problems (1) Bilateral pulmonary embolism Status: Acute Problem Text: When seen and evaluated this morning, Artemiotrin off his oxygen, and he continued to maintain a saturation of approximately 95% on room air. When ambulated however, he did desaturate down to about 86-87, therefore we will keep him for at least 1 additional day, such that he does not desaturate when ambulating. He was switched over to Eliquis last night, the plan is to continue 10 milligrams twice a day for a total of 7 days, and then he will switch over to 5 milligrams twice a day thereafter. His hypercoagulability workup is still pending, he will need to follow-up with his primary care physician regarding the total duration he'll need to remain anticoagulated. (2) Deep vein thrombosis (DVT) of popliteal vein of right lower extremity Status: Acute (3) PJ (acute kidney injury) Status: Resolved Response to Treatment: Improving Problem Text: Resolved (4) Elevated troponin Status: Resolved Problem Text: normal EKG. Echocardiogram was performed and shows mildly elevated central venous pressure and mild pulmonary hypertension, otherwise it is unremarkable. (5) Tachycardia Status: Resolved (6) Hypertension Status: Chronic Problem Text: Blood pressure is coming back up, however, he is only in the 120s and 130s therefore it is not necessary to resume his antihypertensives at this time. I suspect that he will be able to resume his usual home dose upon discharge (7) HSV (herpes simplex virus) infection Status: Chronic Response to Treatment: Stable Problem Text: Will continue patient's Acyclovir 400mg. Plan/VTE VTE Prophylaxis Ordered?: Yes (on heparin drip) VS, I&O, 24H, Fishbone Vital Signs/I&O Vital Signs Date Time Temp Pulse Resp B/P (MAP) Pulse Ox O2 Delivery O2 Flow Rate FiO2 03/20/17 06:00 97.6 78 18 133/76 (95) 96 Nasal Cannula 2.0 I&O- Last 24 Hours up to 6 AM 03/21/17 06:00 Intake Total 360 ml Output Total 300 ml Balance 60 ml Laboratory Data 24H LABS Laboratory Tests 2 03/19/17 18:02: Activated Partial Thromboplast Time 88.4H 03/20/17 00:10: Activated Partial Thromboplast Time 180.7*H 03/20/17 05:39: Prothrombin Time 14.3, Prothromb Time International Ratio 1.09, Anion Gap 5L, Glomerular Filtration Rate > 60.0, Blood Urea Nitrogen 15, Creatinine 1.02, Sodium Level 138, Potassium Level 4.5, Chloride Level 100, Carbon Dioxide Level 33H, Calcium Level 8.3L CBC/BMP Laboratory Tests 03/20/17 05:39 Red Blood Count 5.09, Mean Corpuscular Volume 90.6, Mean Corpuscular Hemoglobin 30.1, Mean Corpuscular Hemoglobin Concent 33.2, Red Cell Distribution Width 12.0 , Calcium Level 8.3 L KENDRICK SPENCER DO Mar 20, 2017 12:23
[2017-03-20 14:00] VITALS: BP 140/78
[2017-03-20 22:00] VITALS: BP 137/78
[2017-03-21 05:46] LABS: MEAN CORPUSCULAR HEMOGLOBIN 29.9 pg (27.0-33.0); MEAN CORPUSCULAR HGB CONC 33.3 g/dl (32.0-36.5); MEAN CORPUSCULAR VOLUME 89.8 fl (80.0-96.0); WHITE BLOOD COUNT 5.2 10^3/uL (4.0-10.0)
[2017-03-21 06:00] VITALS: BP 132/81
[2017-03-21 06:08] LABS: ANION GAP 7 MEQ/L (8-16); BLOOD UREA NITROGEN 17 MG/DL (7-18); CALCIUM LEVEL 8.8 MG/DL (8.5-10.1); CARBON DIOXIDE LEVEL 29 MEQ/L (21-32); CHLORIDE LEVEL 103 MEQ/L (98-107); CREATININE FOR GFR 0.89 MG/DL (0.70-1.30); GLOMERULAR FILTRATION RATE > 60.0 (>56); GLUCOSE, FASTING 105 MG/DL (70-105); POTASSIUM SERUM 3.9 MEQ/L (3.5-5.1); SODIUM LEVEL 139 MEQ/L (136-145)
[2017-03-21] MEDS: PANTOPRAZOLE 40MG TAB (PROTONIX) PO SCH (09:03)
[2017-03-21] MEDS: SENOKOT S TAB PO SCH (09:03)
[2017-03-21] MEDS: APIXABAN 5 MG TAB (ELIQUIS) PO SCH (09:03)
[2017-03-21] MEDS: ACYCLOVIR 400 MG PO SCH (09:03)
--- NOTE | 2017-03-22 17:06 | DSES ---
DATE OF ADMISSION: 03/16/2017 DATE OF DISCHARGE: 03/21/2017 PRIMARY CARE PROVIDER: Aicha Mccray MD DISCHARGE DIAGNOSES: 1. Bilateral pulmonary embolism. 2. Right sided nonocclusive deep vein thrombosis (DVT) in the femoral and popliteal venous system. 3. Acute kidney injury, possibly related to contrast nephropathy. 4. Hypertension. 5. Chronic herpes simplex virus infection. 6. Elevated troponins related to pulmonary embolism causing mild pulmonary hypertension and elevated central venous pressure and mild right ventricular strain. 7. Hypoxia, which has resolved. 8. Possible obstructive sleep apnea, needs to be worked up as an outpatient. DISCHARGE MEDICATIONS: - Eliquis 10 mg twice a day for 7 days and then 5 mg twice a day to continue - Acyclovir 400 mg by mouth daily - triamterine/hydrochlorothiazide 0.25 tablet by mouth daily HOSPITAL COURSE: This is a 52-year-old male who presented to the hospital with left sided chest pain and increasing shortness of breath for about 7 days. 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 He was planning to return back to work when about 7 days ago he started feeling short of breath, which progressively got worse so he had gone to his primary care provider and was prescribed an antibiotic for possible respiratory tract infection; however, did not have any improvement so came to the emergency room. In the emergency department, he was found to be hypoxic and saturating at 86% on room air, so was started on oxygen supplementation. He was also very tachycardic with a pulse rate in 120s to 130s. He had a CT angio done, which showed large bilateral central pulmonary emboli in the distal main right and left pulmonary arteries and extending into the lobar arteries bilaterally. He was started on heparin infusion. Subsequently, he also had Doppler scan of the lower extremities, which showed nonocclusive deep vein thrombosis (DVT) throughout the right femoral and popliteal venous system. He was placed in intensive care unit (ICU) and was continued on oxygen supplementation. He was noted to become very hypoxic at night when he is sleeping. His oxygen saturations improved over the next 2 days and during the day he was off oxygen; however, he still continued to become hypoxic during sleep so it was felt that the patient may have underlying undiagnosed sleep apnea. Subsequently, he was switched over to Eliquis and he was moved out of intensive care unit (ICU). He did well. His pulse rate normalized and his hypoxia resolved. On the day of discharge, his symptoms were resolved. He was functionally close to his baseline. His vitals were stable. PHYSICAL EXAMINATION: VITAL SIGNS: Temperature 98, pulse 79, respiratory rate 18, blood pressure 132/81, pulse oximetry 94% on room air. GENERAL: The patient is awake, alert, oriented times three. Sitting up in bed in no acute distress. HEENT: Normocephalic, atraumatic. Moist mucous membranes. Anicteric eyes. CHEST: Clear to auscultation. CARDIOVASCULAR: S1, S2 regular. No rub, murmur or gallop. ABDOMEN: Obese, soft, nontender. Bowel sounds present. EXTREMITIES: No edema. LABORATORY DATA: WBC 5.2, hemoglobin 14.7, platelets 171. Sodium 139, potassium 3.9, chloride 103, bicarbonate 29, BUN 17, creatinine 0.8, glucose 105, calcium 8.8. Protein C, protein S activity normal. Antithrombin III activity was normal. Factor V Leiden is pending. Prothrombin gene mutation level is pending. Lupus anticoagulant studies are pending. Anticardiolipin antibody level is pending. Echocardiogram showed an ejection fraction of 65 to 70%, normal diastolic function, no significant valvular disease. There was at least mildly elevated central venous pressure and mild pulmonary hypertension. DISPOSITION: The patient is discharged home in a stable condition. DISCHARGE INSTRUCTIONS: The patient is to followup with primary care provider in 1 week. Regular diet. Activity as tolerated. The patient is advised off work for 1 week and to followup with primary care physician before going back to work.
== END 2017-03-21 13:15 | disposition home or self-care (01) | DRG 134 ==
LOC: M ED 16:28 → M ED INP 18:32 → M ICU 21:10 → M MS5PR 03-19 10:50
PROVIDERS: ADMIT Internal Medicine; ATTEND Internal Medicine Nephrology
DX: I26.99 Other pulmonary embolism without acute cor pulmonale (principal); N17.9 Acute kidney failure, unspecified; I27.20 Pulmonary hypertension, unspecified; B00.9 Herpesviral infection, unspecified; I82.411 Acute embolism and thrombosis of right femoral vein; I10 Essential (primary) hypertension; G47.33 Obstructive sleep apnea (adult) (pediatric); N14.1 Nephropathy induced by other drugs, medicaments and biological substances; T50.8X5A Adverse effect of diagnostic agents, initial encounter; Z79.899 Other long term (current) drug therapy; R00.0 Tachycardia, unspecified; R09.02 Hypoxemia; Z96.641 Presence of right artificial hip joint; Z88.8 Allergy status to other drugs, medicaments and biological substances; Z91.010 Allergy to peanuts

== ENCOUNTER 2017-05-07 13:19 | Emergency (ER) | payer BC ==
[~2017-05-07] VITALS: Ht 180.3 cm; Wt 97.7 kg
[~2017-05-07 13:19] MED LIST changes: +CEPH500C PO; +ELIQ5TAB PO
[2017-05-07 13:55] LABS: BASO % 0.6 % (0.0-1.0); EOS # 0.1 10^3/uL (0.0-0.50); EOS % 2.2 % (0.0-3.0); IMMATURE GRANULOCYTE % 0.3 % (0-0); LYMPH # 1.6 10^3/uL (1.5-4.5); LYMPH % 24.8 % (24.0-44.0); MEAN CORPUSCULAR HEMOGLOBIN 29.6 pg (27.0-33.0); MEAN CORPUSCULAR HGB CONC 33.7 g/dl (32.0-36.5); MEAN CORPUSCULAR VOLUME 87.9 fl (80.0-96.0); MONO # 0.5 10^3/uL (0.0-0.8); MONO % 7.9 % (0.0-5.0); NEUTROPHILS # 4.2 10^3/uL (1.8-7.7); NEUTROPHILS % 64.2 % (36.0-66.0); PLATELET COUNT, AUTOMATED 193 10^3/uL (150-450); RED CELL DISTRIBUTION WIDTH 13.2 % (11.5-14.5); WHITE BLOOD COUNT 6.5 10^3/uL (4.0-10.0)
[2017-05-07 13:57] LABS: VENOUS BASE EXCESS 3.3 (-2.0-2.0); VENOUS O2 SATURATION 65.6 % (60.0-80.0); VENOUS PARTIAL PRESSURE CO2 52.7 mmHg (38.0-50.0); VENOUS PARTIAL PRESSURE O2 35.5 mmHg (30.0-50.0); VENOUS STANDARD HCO3 26.4 MEQ/L; VENOUS TOTAL CO2 31.6 MEQ/L (24.0-28.0)
[2017-05-07] MEDS ORDERED: ASPIRIN 81 MG CHEW TABLET PO ONE (14:00)
[2017-05-07] MEDS ORDERED: NITROGLYCERIN 0.4 MG SUBL TABLET SL PRN (14:00)
[2017-05-07 14:08] VITALS: BP 157/94
[2017-05-07 14:27] LABS: INR 0.95
[2017-05-07 14:38] LABS: ALBUMIN 4.1 GM/DL (3.2-5.2); ALBUMIN/GLOBULIN RATIO 1.32 (1.00-1.93); ALKALINE PHOSPHATASE 109 U/L (45-117); ALT/SGPT 38 U/L (12-78); ANION GAP 7 MEQ/L (8-16); AST/SGOT 23 U/L (7-37); BILIRUBIN,DIRECT 0.1 MG/DL (0.0-0.2); BILIRUBIN,TOTAL 0.3 MG/DL (0.2-1.0); BLOOD UREA NITROGEN 10 MG/DL (7-18); CALCIUM LEVEL 9.1 MG/DL (8.5-10.1); CARBON DIOXIDE LEVEL 29 MEQ/L (21-32); CHLORIDE LEVEL 102 MEQ/L (98-107); CREATININE FOR GFR 1.04 MG/DL (0.70-1.30); GLOMERULAR FILTRATION RATE > 60.0 (>56); GLUCOSE, FASTING 105 MG/DL (70-105); POTASSIUM SERUM 3.4 MEQ/L (3.5-5.1); SODIUM LEVEL 138 MEQ/L (136-145); TOTAL PROTEIN 7.2 GM/DL (6.4-8.2)
[2017-05-07] MEDS ORDERED: ISOVUE-370 76% 100ML VIAL (Q9967) As Ordered ONE (14:47)
--- NOTE | 2017-05-07 15:38 | REP ---
Clinical: Shortness of breath. Rule out pulmonary embolus. Technique: Axial contrast enhanced images from the thoracic inlet to the upper abdomen using 100 ml Isovue 370 intravenous contrast material with multiplanar MIP re-formations. Comparison: 03/16/2017. Findings: Satisfactory enhancement of the pulmonary vasculature is achieved and no filling defects are identified to suggest pulmonary embolus. Thoracic aorta is normal caliber without aneurysm or dissection. Heart and pericardium are normal. Lung verma demonstrate minimal chronic changes along the subpleural left upper lung zone reflecting sequelae of prior atelectasis and improved compared to prior examination. A 5 mm noncalcified nodule along the periphery of the apical segment left lower lobe remains stable. Small amount of left lower lobe atelectasis is appreciated. No further consolidation, pleural effusion or pneumothorax. No significant adenopathy. Surrounding musculoskeletal structures are intact. Impression: No evidence for pulmonary embolus. Chronic subpleural changes along the left upper lung zone are improved. Small amount of acute left lower lobe atelectasis. Signed by Simón Manuel MD 05/07/2017 03:29 P
[2017-05-07 16:23] VITALS: BP 153/80
--- NOTE | 2017-05-07 18:15 | ECGEPIP ---
Stationary ECG Study [facility] - ED Test Date: 2017-05-07 Pat Name: PAUL CHERRY Department: Room: - Gender: M [employer]: : 1965 Requested By: Janelle Roblero Order Number: [id number] Reading MD: Janelle Roblero Measurements Intervals [place] Rate: 91 P: 21 [place]: 153 QRS: 31 QRSD: 95 T: 8 QT: 357 QTc: 441 Interpretive Statements SINUS RHYTHM DECREASED RATE 03/16/17 Electronically Signed On 05-07-2017 18:14:52 EST by Janelle Roblero
== END 2017-05-07 16:35 | disposition home or self-care (01) ==
LOC: M ED 13:19
DX: R07.89 Other chest pain (principal); I10 Essential (primary) hypertension; Z86.718 Personal history of other venous thrombosis and embolism; Z82.49 Family history of ischemic heart disease and other diseases of the circulatory system; Z79.01 Long term (current) use of anticoagulants; Z79.899 Other long term (current) drug therapy; Z88.1 Allergy status to other antibiotic agents; Z91.010 Allergy to peanuts; Z91.018 Allergy to other foods
CPT/HCPCS: 71275; 80048; 80076; 82550; 82553; 82803; 83690; 85025; 85610; 85730; 93005; 93041; 99285; Q9967

== ENCOUNTER 2017-07-01 18:14 | Emergency (ER) | payer BC ==
[2017-07-01] MEDS: NS 1,000 ML IV (18:25)
[2017-07-01 18:50] LABS: VENOUS BASE EXCESS 3.7 (-2.0-2.0); VENOUS HCO3 29.7 MEQ/L (23.0-27.0); VENOUS O2 SATURATION 79.7 % (60.0-80.0); VENOUS PARTIAL PRESSURE CO2 49.2 mmHg (38.0-50.0); VENOUS PARTIAL PRESSURE O2 44.2 mmHg (30.0-50.0); VENOUS PH 7.399 UNITS (7.330-7.430); VENOUS STANDARD HCO3 27.2 MEQ/L; VENOUS TOTAL CO2 31.2 MEQ/L (24.0-28.0)
[2017-07-01 18:54] LABS: BASO % 0.5 % (0.0-1.0); EOS # 0.1 10^3/uL (0.0-0.50); EOS % 2.2 % (0.0-3.0); HEMATOCRIT 46.4 % (42.0-52.0); IMMATURE GRANULOCYTE % 0.3 % (0-0); LYMPH # 1.2 10^3/uL (1.5-4.5); LYMPH % 20.9 % (24.0-44.0); MEAN CORPUSCULAR HEMOGLOBIN 30.1 pg (27.0-33.0); MEAN CORPUSCULAR HGB CONC 34.5 g/dl (32.0-36.5); MEAN CORPUSCULAR VOLUME 87.4 fl (80.0-96.0); MONO # 0.7 10^3/uL (0.0-0.8); MONO % 11.1 % (0.0-5.0); NEUTROPHILS # 3.8 10^3/uL (1.8-7.7); PLATELET COUNT, AUTOMATED 178 10^3/uL (150-450); RED BLOOD COUNT 5.31 10^6/uL (4.30-6.10); RED CELL DISTRIBUTION WIDTH 13.8 % (11.5-14.5); WHITE BLOOD COUNT 5.8 10^3/uL (4.0-10.0)
[2017-07-01] MEDS: ASPIRIN 81 MG CHEW TABLET PO (18:54)
[2017-07-01] MEDS: MORPHINE 2 MG/ML 1ML SYRINGE IV (18:54)
[2017-07-01 19:04] LABS: INR 1.07
[2017-07-01 19:05] LABS: PARTIAL THROMBOPLASTIN TIME 29.2 SECONDS (26.8-37.9)
[2017-07-01 19:23] LABS: ALBUMIN 3.8 GM/DL (3.2-5.2); ALBUMIN/GLOBULIN RATIO 1.19 (1.00-1.93); ALKALINE PHOSPHATASE 106 U/L (45-117); ALT/SGPT 40 U/L (12-78); ANION GAP 7 MEQ/L (8-16); AST/SGOT 27 U/L (7-37); BILIRUBIN,DIRECT < 0.1 MG/DL (0.0-0.2); BILIRUBIN,TOTAL 0.3 MG/DL (0.2-1.0); BLOOD UREA NITROGEN 17 MG/DL (7-18); CALCIUM LEVEL 8.8 MG/DL (8.5-10.1); CARBON DIOXIDE LEVEL 30 MEQ/L (21-32); CHLORIDE LEVEL 103 MEQ/L (98-107); CK-MB VALUE MASS 2.4 NG/ML (0.0-3.6); CPK CREATINE PHOSPHOKINASE 183 U/L (39-308); CREATININE FOR GFR 1.17 MG/DL (0.70-1.30); GLOMERULAR FILTRATION RATE > 60.0 (>56); GLUCOSE, FASTING 104 MG/DL (70-105); MB/CK RELATIVE INDEX 1.31 (< OR =4); POTASSIUM SERUM 3.6 MEQ/L (3.5-5.1); SODIUM LEVEL 140 MEQ/L (136-145); TROPONIN I < 0.02 NG/ML (< 0.10)
[2017-07-01] MEDS ORDERED: ISOVUE-370 76% 100ML VIAL (Q9967) As Ordered (19:40)
== END 2017-07-01 21:28 | disposition home or self-care (01) ==
LOC: M ED 18:14
DX: R07.89 Other chest pain (principal); R91.1 Solitary pulmonary nodule; I10 Essential (primary) hypertension; Z86.711 Personal history of pulmonary embolism; Z86.718 Personal history of other venous thrombosis and embolism; Z82.49 Family history of ischemic heart disease and other diseases of the circulatory system; Z79.01 Long term (current) use of anticoagulants; Z79.899 Other long term (current) drug therapy; Z88.1 Allergy status to other antibiotic agents; Z91.010 Allergy to peanuts; Z91.018 Allergy to other foods
CPT/HCPCS: Q9967

== ENCOUNTER → 2017-08-27 | Outpatient (CLI) | payer BC ==
[2017-08-27 09:26] LABS: HEMATOCRIT 49.6 % (42.0-52.0); HEMOGLOBIN 16.9 g/dl (14.0-18.0); MEAN CORPUSCULAR HEMOGLOBIN 30.5 pg (27.0-33.0); MEAN CORPUSCULAR HGB CONC 34.1 g/dl (32.0-36.5); MEAN CORPUSCULAR VOLUME 89.5 fl (80.0-96.0); PLATELET COUNT, AUTOMATED 168 10^3/uL (150-450); RED BLOOD COUNT 5.54 10^6/uL (4.30-6.10); RED CELL DISTRIBUTION WIDTH 12.3 % (11.5-14.5); WHITE BLOOD COUNT 5.2 10^3/uL (4.0-10.0)
[2017-08-27 09:35] LABS: INR 1.01; PROTHROMBIN TIME 13.4 SECONDS (12.4-14.5)
[2017-08-27 10:07] LABS: ALBUMIN 3.8 GM/DL (3.2-5.2); ALBUMIN/GLOBULIN RATIO 1.23 (1.00-1.93); ALKALINE PHOSPHATASE 98 U/L (45-117); ALT/SGPT 40 U/L (12-78); ANION GAP 7 MEQ/L (8-16); AST/SGOT 26 U/L (7-37); BILIRUBIN,TOTAL 0.7 MG/DL (0.2-1.0); BLOOD UREA NITROGEN 17 MG/DL (7-18); CARBON DIOXIDE LEVEL 29 MEQ/L (21-32); CHLORIDE LEVEL 104 MEQ/L (98-107); CHOLESTEROL LEVEL 202 MG/DL (<200); CHOLESTEROL RISK RATIO 5.771 (<5); CREATININE FOR GFR 1.11 MG/DL (0.70-1.30); GLOMERULAR FILTRATION RATE > 60.0 (>56); GLUCOSE, FASTING 108 MG/DL (70-100); HDL CHOLESTEROL 35 MG/DL (>40); LDL CHOLESTEROL 138.2 MG/DL (<100); NON-HDL-C 167 MG/DL; POTASSIUM SERUM 4.2 MEQ/L (3.5-5.1); PROSTATIC SPECIFIC AG MONITOR 3.65 NG/ML (< 4.0); SODIUM LEVEL 140 MEQ/L (136-145); THYROID STIMULATING HORMONE 0.922 uIU/ML (0.358-3.740); TOTAL PROTEIN 6.9 GM/DL (6.4-8.2); TRIGLYCERIDES LEVEL 144 MG/DL (<150)
== END ==
LOC: M LAB 08:43
DX: I10 Essential (primary) hypertension (principal)
CPT/HCPCS: 71046

== ENCOUNTER → 2018-05-26 | Outpatient (REF) | payer BC ==
[2018-06-02 08:06] LABS: BETA-2 GLYCOPROTEIN I ABY IGA <9 (0-25); BETA-2 GLYCOPROTEIN I ABY IGG <9 (0-20); BETA-2 GLYCOPROTEIN I ABY IGM <9 (0-32); PROTEIN C FUNCTIONAL ACTIVITY 169 % (73-180); PROTEIN S ANTIGEN FREE 127 % (57-157); PROTEIN S ANTIGEN TOTAL 113 % (60-150); PROTEIN S FUNCTIONAL ACTIVITY 129 % (63-140)
== END ==
LOC: M LAB REF 13:21
DX: Z86.711 Personal history of pulmonary embolism (principal)
CPT/HCPCS: 85306

== ENCOUNTER → 2018-06-09 | Outpatient (CLI) | payer BC ==
[~2018-06-09] MED LIST changes: +AMOX500C
--- NOTE | 2018-06-09 10:41 | REP ---
Clinical: Chest pain with history of pulmonary embolus . Comparison: 08/27/2017 . Technique: PA and lateral. Findings: The mediastinum and cardiac silhouette are normal. The lung verma are clear and without acute consolidation, effusion, or pneumothorax. The skeletal structures are intact and normal. Impression: 1. No acute cardiopulmonary process. Electronically Signed by Simón Manuel MD 06/09/2018 10:33 A
--- NOTE | 2018-06-09 11:20 | REP ---
V/Q SCAN: Following the intravenous administration of 5.5 millicuries technetium 99m tagged MAA and the inhalation of 1 millicurie technetium 99m, DTPA aerosol, multiple images of the lungs are obtained in various projections. A few small subsegmental matching ventilation perfusion defects are seen peripherally in the lungs. There are no areas of V/Q mismatch. Left ventricular shadow is somewhat prominent causing a matching defect. IMPRESSION: Low probability of pulmonary embolism. Electronically Signed by Philipp Johnston MD 06/09/2018 11:48 A
== END ==
LOC: M RAD 10:03
PROVIDERS: ATTEND Internal Medicine Pulmonary Disease
DX: Z86.711 Personal history of pulmonary embolism (principal)
CPT/HCPCS: 71046; 78582; A9540; A9567

== ENCOUNTER → 2018-07-20 | Outpatient (CLI) | payer BC | LOC: M SMT 08:45 | PROVIDERS: ATTEND Internal Medicine Pulmonary Disease | DX: Z86.711 Personal history of pulmonary embolism (principal) ==

== ENCOUNTER → 2020-08-09 | Outpatient (CLI) | payer BC ==
[~2020-08-09] MED LIST changes: +ACYC1CAP20 PO; -ACYC200CA PO
[2020-08-09 09:08] LABS: HEMATOCRIT 51.8 % (42.0-52.0); HEMOGLOBIN 17.2 g/dl (13.5-17.5); MEAN CORPUSCULAR HEMOGLOBIN 30.8 pg (27.0-33.0); MEAN CORPUSCULAR HGB CONC 33.2 g/dl (32.0-36.5); MEAN CORPUSCULAR VOLUME 92.7 fl (80.0-96.0); PLATELET COUNT, AUTOMATED 174 10^3/uL (150-450); RED BLOOD COUNT 5.59 10^6/uL (4.30-6.10); WHITE BLOOD COUNT 5.7 10^3/uL (4.0-10.0)
[2020-08-09 09:37] LABS: ALBUMIN 4.1 GM/DL (3.2-5.2); ALT/SGPT 26 U/L (12-78); BILIRUBIN,TOTAL 0.8 MG/DL (0.2-1.0); BLOOD UREA NITROGEN 16 MG/DL (7-18); CALCIUM LEVEL 9.7 MG/DL (8.5-10.1); CARBON DIOXIDE LEVEL 32 MEQ/L (21-32); CHLORIDE LEVEL 104 MEQ/L (98-107); CHOLESTEROL LEVEL 230 MG/DL (<200); CHOLESTEROL RISK RATIO 5.897 (<5); CREATININE FOR GFR 1.07 MG/DL (0.70-1.30); GLOMERULAR FILTRATION RATE > 60.0 (>56); GLUCOSE, FASTING 105 MG/DL (70-100); HDL CHOLESTEROL 39 MG/DL (>40); LDL CHOLESTEROL 158 MG/DL (<100); NON-HDL-C 191 MG/DL; POTASSIUM SERUM 4.5 MEQ/L (3.5-5.1); PROSTATIC SPECIFIC AG MONITOR 5.57 NG/ML (< 4.00); SODIUM LEVEL 139 MEQ/L (136-145); THYROID STIMULATING HORMONE 0.611 uIU/ML (0.358-3.740); TOTAL PROTEIN 7.2 GM/DL (6.4-8.2); TRIGLYCERIDES LEVEL 164 MG/DL (<150)
[2020-08-09 09:38] LABS: TESTOSTERONE 571 NG/DL (241-827)
[2020-08-09 09:59] LABS: HEMOGLOBIN A1c 5.7 %
== END ==
LOC: M LAB 08:12
PROVIDERS: ATTEND Family Medicine
DX: I10 Essential (primary) hypertension (principal); R53.83 Other fatigue

== ENCOUNTER → 2021-07-29 | Outpatient (CLI) | payer BC ==
[~2021-07-29] MED LIST changes: -MAXZTA PO; +TRIA75TA2 PO
== END ==
LOC: M RAD 08:25
PROVIDERS: ATTEND Family Medicine
DX: J32.9 Chronic sinusitis, unspecified (principal)

== ENCOUNTER → 2021-11-03 | Outpatient (CLI) | payer BC ==
[2021-11-03 11:16] LABS: HEMATOCRIT 49.8 % (42.0-52.0); HEMOGLOBIN 16.6 g/dl (13.5-17.5); MEAN CORPUSCULAR HEMOGLOBIN 31.6 pg (27.0-33.0); MEAN CORPUSCULAR HGB CONC 33.3 g/dl (32.0-36.5); MEAN CORPUSCULAR VOLUME 94.9 fl (80.0-96.0); PLATELET COUNT, AUTOMATED 183 10^3/uL (150-450); RED BLOOD COUNT 5.25 10^6/uL (4.30-6.10); WHITE BLOOD COUNT 6.4 10^3/uL (4.0-10.0)
[2021-11-03 12:03] LABS: ALBUMIN 3.8 GM/DL (3.2-5.2); ALT/SGPT 32 U/L (12-78); BILIRUBIN,TOTAL 0.4 MG/DL (0.2-1.0); BLOOD UREA NITROGEN 20 MG/DL (7-18); CALCIUM LEVEL 9.2 MG/DL (8.5-10.1); CARBON DIOXIDE LEVEL 29 MEQ/L (21-32); CHLORIDE LEVEL 104 MEQ/L (98-107); CHOLESTEROL LEVEL 189 MG/DL (<200); CREATININE FOR GFR 1.06 MG/DL (0.70-1.30); GLOMERULAR FILTRATION RATE > 60.0 (>56); GLUCOSE, FASTING 96 MG/DL (70-100); HDL CHOLESTEROL 36 MG/DL (>40); LDL CHOLESTEROL 76 MG/DL (<100); NON-HDL-C 153 MG/DL; POTASSIUM SERUM 4.3 MEQ/L (3.5-5.1); SODIUM LEVEL 138 MEQ/L (136-145); TOTAL PROTEIN 7.1 GM/DL (6.4-8.2); TRIGLYCERIDES LEVEL 383 MG/DL (<150)
[2021-11-03 12:08] LABS: HEMOGLOBIN A1c 5.8 %
[2021-11-03 12:26] LABS: TESTOSTERONE 569 NG/DL (241-827)
[2021-11-03 13:11] LABS: TOTAL 25(OH) VITAMIN D 36.5 NG/ML (30.0-100.0)
== END ==
LOC: M LAB 09:56
PROVIDERS: ATTEND Family Medicine
DX: I10 Essential (primary) hypertension (principal); E03.9 Hypothyroidism, unspecified; R53.83 Other fatigue
CPT/HCPCS: 36415; 80053; 80061; 82306; 83036; 84403; 84443; 85027; G0103

== ENCOUNTER → 2022-02-03 | Outpatient (CLI) | payer BC ==
[~2022-02-03] MED LIST changes: +TRIA75TA10 PO; -TRIA75TA2 PO
== END ==
LOC: M LAB 09:20
PROVIDERS: ATTEND Family Medicine
DX: R97.20 Elevated prostate specific antigen [PSA] (principal)
CPT/HCPCS: 36415; G0103

== ENCOUNTER → 2022-04-01 | Outpatient (CLI) | payer BC | LOC: M RAD 12:07 | PROVIDERS: ATTEND Family Medicine | DX: J18.9 Pneumonia, unspecified organism (principal) ==

== ENCOUNTER → 2022-10-29 | Outpatient (CLI) | payer BC | LOC: M LAB 10:03 | PROVIDERS: ATTEND Internal Medicine Critical Care Medicine | DX: I26.99 Other pulmonary embolism without acute cor pulmonale (principal) ==

== ENCOUNTER → 2022-11-05 | Outpatient (CLI) | payer BC | LOC: M RAD 06:48 | PROVIDERS: ATTEND Internal Medicine Critical Care Medicine | DX: I26.99 Other pulmonary embolism without acute cor pulmonale (principal) | CPT/HCPCS: 71046; 78582; A9540; A9567 ==

== ENCOUNTER → 2022-11-26 | Outpatient (CLI) | payer BC | LOC: M CARPUL 08:29 | PROVIDERS: ATTEND Internal Medicine Critical Care Medicine | DX: I26.99 Other pulmonary embolism without acute cor pulmonale (principal) ==

== ENCOUNTER → 2023-04-01 | Outpatient (CLI) | payer BC ==
[~2023-04-01] MED LIST changes: +FINA-48 PO; -PROS5TAB PO
== END ==
LOC: M LAB 09:01
PROVIDERS: ATTEND Internal Medicine Critical Care Medicine
DX: I26.99 Other pulmonary embolism without acute cor pulmonale (principal)

== ENCOUNTER → 2023-09-09 | Outpatient (CLI) | payer BC | LOC: M LAB 07:50 | PROVIDERS: ATTEND Internal Medicine Critical Care Medicine | DX: I26.99 Other pulmonary embolism without acute cor pulmonale (principal) ==

== ENCOUNTER → 2023-10-06 | Outpatient (CLI) | payer BC | LOC: M RAD 08:20 | PROVIDERS: ATTEND Family Medicine | DX: E07.9 Disorder of thyroid, unspecified (principal); J39.2 Other diseases of pharynx; J32.9 Chronic sinusitis, unspecified ==

== ENCOUNTER → 2024-03-09 | Outpatient (CLI) | payer BC ==
[2024-03-09 09:12] LABS: HEMATOCRIT 50.7 % (42.0-52.0); HEMOGLOBIN 17.2 g/dl (13.5-17.5); MEAN CORPUSCULAR HEMOGLOBIN 31.9 pg (27.0-33.0); MEAN CORPUSCULAR HGB CONC 33.9 g/dl (32.0-36.5); MEAN CORPUSCULAR VOLUME 93.9 fl (80.0-96.0); PLATELET COUNT, AUTOMATED 188 10^3/uL (150-450); WHITE BLOOD COUNT 6.2 10^3/uL (4.0-10.0)
[2024-03-09 09:34] LABS: HEMOGLOBIN A1c 5.9 % (4.0-6.0)
[2024-03-09 09:36] LABS: ALBUMIN 3.7 G/DL (3.2-5.2); ALKALINE PHOSPHATASE 96 U/L (46-116); ALT/SGPT 27 U/L (7.0-40); AST/SGOT 21 U/L (<34); BILIRUBIN,TOTAL 0.6 MG/DL (0.3-1.2); BLOOD UREA NITROGEN 13 MG/DL (9-23); CALCIUM LEVEL 9.2 MG/DL (8.3-10.6); CARBON DIOXIDE LEVEL 32 MMOL/L (20-31); CHLORIDE LEVEL 105 MMOL/L (98-107); CHOLESTEROL LEVEL 166 MG/DL (<200); CHOLESTEROL RISK RATIO 4.46 (<5); CREATININE FOR GFR 0.94 MG/DL (0.70-1.30); GLOMERULAR FILTRATION RATE > 60.0 (>49); GLUCOSE, FASTING 111 MG/DL (74-106); HDL CHOLESTEROL 37.2 MG/DL (>40); LDL CHOLESTEROL 94.4 MG/DL (<100); NON-HDL-C 128.8 MG/DL; PROSTATIC SPECIFIC AG MONITOR 3.49 NG/ML (< 4.00); SODIUM LEVEL 138 MMOL/L (136-145); TOTAL PROTEIN 6.7 G/DL (5.7-8.2); TRIGLYCERIDES LEVEL 172 MG/DL (<150)
[2024-03-09 09:38] LABS: TOTAL 25(OH) VITAMIN D 30.5 NG/ML (20.0-100.0)
[2024-03-09 09:39] LABS: TESTOSTERONE 707 NG/DL (241-827)
== END ==
LOC: M LAB 08:28
PROVIDERS: ATTEND Family Medicine
DX: D64.9 Anemia, unspecified (principal); R53.83 Other fatigue; E03.9 Hypothyroidism, unspecified

== ENCOUNTER → 2025-05-25 | Outpatient (CLI) | payer BC | LOC: M PLAIMG 09:53 | PROVIDERS: ATTEND Physician Assistant | DX: M76.32 Iliotibial band syndrome, left leg (principal); M16.12 Unilateral primary osteoarthritis, left hip; M70.62 Trochanteric bursitis, left hip; M75.22 Bicipital tendinitis, left shoulder ==